=== PATIENT | female | born 1940 | race Caucasian/White ===

== ENCOUNTER → 2017-05-27 | Outpatient (CLI) | payer OTHER ==
[~2017-05-27] MED LIST: ACET325 PO; ALBU90OI6 INH; AMIO200 PO; AMLO5 PO; ASPI325 PO; BENA20 PO; BUME1 PO; BUME2; Bacid1 EACH PO; Bactrim Ds Tab1 EACH PO; CALC.25; CHOL10002 PO; CLON.1 PO; CLON.2 PO; CYAN1000; CYCL10 PO; Coumadin5 MG PO; Coumadin6 MG PO; DOCSEN PO; DOXA2 PO; ENAL20 PO; ENALAPRIL; ESZO1 PO; FERR325 PO; FURO20 PO; FURO40 PO; HYDACE5 PO; HYDMOR2 PO; HYDPAM25; HYDR10 PO; ISODIN10 PO; LEVSOD100 PO; LEVSOD50 PO; LEVSOD75 PO; LEVSOD88 PO; LORA.5 PO; Lasix 10 mg/10 MG/ML; MAGCHL64ER PO; MAGOXI400 PO; MEDI PO; METF500 PO; METO2.5 PO; METO50ER PO; METR500 PO; Mirapex0.25 MG PO; NAPR500 PO; NEBI5 PO; PANT40 PO; POTA10T PO; POTCHL20ER; PRAM.125 PO; PRAM.5 PO; PRAV20; PRAV20 PO; SPIR25; Simvastatin20 MG PO; TORSE20 PO; Toprol Xl50 MG PO; VITAMIN D350000 UNIT PO; WARF4 PO
[2017-05-27 10:42] LABS: BASOPHILS ABSOLUTE AUTO 0.02 K/mm3 (0.00-0.23); BASOPHILS PERCENT AUTO 0 % (0-2); EOSINOPHILS ABSOLUTE AUTO 0.06 K/mm3 (0.00-0.68); EOSINOPHILS PERCENT AUTO 1 % (0-6); Hematocrit 34.1 % (33.0-51.0); Hemoglobin 10.5 g/dL (11.5-16.0); IMMATURE GRAN ABSOLUTE AUTO 0.04 K/mm3 (0.00-0.10); IMMATURE GRAN PERCENT AUTO 1 % (0-1); LYMPHOCYTES ABSOLUTE AUTO 1.21 K/mm3 (0.84-5.20); LYMPHOCYTES PERCENT AUTO 15 % (21-46); MONOCYTES ABSOLUTE AUTO 0.62 K/mm3 (0.16-1.47); MONOCYTES PERCENT AUTO 8 % (4-13); Mean Corpuscular HGB 29.5 pg (26.0-34.0); Mean Corpuscular HGB Conc 30.8 g/dL (31.5-36.5); Mean Corpuscular Volume 96 fL (80-100); NEUTROPHILS PERCENT AUTO 75 % (41-73); Platelet Count 205 K/mm3 (150-400); RDW Coefficient Variation 14.3 % (11.7-14.2); RDW Standard Deviation 50.3 fL (35.1-46.3); Red Blood Cell Count 3.56 M/mm3 (3.80-5.20); White Blood Cell Count 7.85 K/mm3 (4.00-11.30)
[2017-05-27 10:56] LABS: International Normalized Ratio 1.43
[2017-05-27 11:17] LABS: Alanine Aminotransfer (ALT/SGP 19 U/L (12-78); Albumin, Blood 3.2 g/dL (3.4-5.0); Albumin/Globulin Ratio 0.9 (0.8-1.8); Alk Phos 53 U/L (50-136); Anion Gap 9 mmol/L (6-16); Aspartate Aminotrans (AST/SGOT 14 U/L (12-37); Bilirubin, Total 0.3 mg/dL (0.1-1.0); Blood Urea Nitrogen 47 mg/dL (8-24); CHOL/HDL RATIO 2.1; CO2, Blood 29 mmol/L (21-32); Chloride, Blood 104 mmol/L (98-108); Cholesterol 103 mg/dL (50-200); Creatinine, Blood 2.14 mg/dL (0.40-1.00); Globulin, Blood 3.5 g/dL (2.2-4.0); Glomerular Filtration Rate 24 (60-); Glucose, Blood 112 mg/dL (70-99); HDL Cholesterol 50 mg/dL (>39); LDL/HDL RATIO 0.6; Low Density Lipoprotein Chol 30 mg/dL (0-110); Potassium, Blood 3.4 mmol/L (3.5-5.5); Sodium, Blood 142 mmol/L (136-145); Total Protein, Blood 6.7 g/dL (6.4-8.2); Triglycerides 114 mg/dL (30-160); Very Low Density Lipoprot Chol 22 mg/dL (6-32)
[2017-05-27 11:18] LABS: Albumin, Blood 3.2 g/dL (3.4-5.0); Anion Gap 9 mmol/L (6-16); Blood Urea Nitrogen 48 mg/dL (8-24); Bun/Creatinine Ratio 20.3 (12.0-20.0); CO2, Blood 28 mmol/L (21-32); Calcium, Blood 9.3 mg/dL (8.5-10.1); Chloride, Blood 105 mmol/L (98-108); Creatinine, Blood 2.37 mg/dL (0.40-1.00); Glomerular Filtration Rate 21 (60-); Glucose, Blood 116 mg/dL (70-99); Phosphorus, Blood 3.3 mg/dL (2.5-4.9); Potassium, Blood 3.5 mmol/L (3.5-5.5); Sodium, Blood 142 mmol/L (136-145)
== END ==
LOC: OLS 09:21
PROVIDERS: Internal Medicine; Internal Medicine Cardiovascular Disease
DX: I12.9 Hypertensive chronic kidney disease with stage 1 through stage 4 chronic kidney disease, or unspecified chronic kidney disease (principal); N17.9 Acute kidney failure, unspecified; D63.1 Anemia in chronic kidney disease; I48.0 Paroxysmal atrial fibrillation; E03.9 Hypothyroidism, unspecified
CPT/HCPCS: 36415; 80053; 80061; 80069; 83036; 83880; 83970; 84443; 85025; 85610

== ENCOUNTER → 2017-05-31 | Outpatient (CLI) | payer OTHER ==
[2017-05-31 12:13] LABS: Source, Urine Clean Catch
[2017-05-31 13:43] LABS: Appearance, Urine Clear (Clear); Bilirubin, Urine Neg (Neg); Blood, Urine 1+ (Neg); Color, Urine Yellow (P-Yellow); Glucose Qualitative, Urine Neg (Neg); Ketones, Urine Neg (Neg); Leukocyte Esterase, Urine 1+ (Neg); Nitrite, Urine Neg (Neg); Protein, Urine 2+ (Neg); Urobilinogen, Urine NORM (Normal)
[2017-05-31 13:59] LABS: White Blood Cells, Urine 25-50 /hpf (0-5)
[2017-05-31 14:00] LABS: Bacteria Many /hpf; Red Blood Cells, Urine Not Seen /hpf (0-2); Squamous Epithelial Cells Rare /hpf (Few)
== END | disposition home or self-care (01) ==
LOC: OLS 12:07
PROVIDERS: Internal Medicine
DX: R39.15 Urgency of urination (principal)
CPT/HCPCS: 81001; 87077; 87086; 87186

== ENCOUNTER 2017-06-02 10:01 | Emergency (ER) | payer OTHER ==
[~2017-06-02] VITALS: Ht 162.6 cm; Wt 68.0 kg
[~2017-06-02 10:01] MED LIST changes: -Coumadin5 MG PO
[2017-06-02 11:02] LABS: International Normalized Ratio 1.48; Prothrombin Time Results 15.6 Sec (9.7-11.5)
[2017-06-02] MEDS ORDERED: Coumadin5 MG PO (12:53)
== END 2017-06-02 13:11 | disposition home or self-care (01) ==
LOC: ER 10:01
PROVIDERS: Nurse Practitioner Family
DX: M71.21 Synovial cyst of popliteal space [Baker], right knee (principal); Z88.8 Allergy status to other drugs, medicaments and biological substances; Z88.5 Allergy status to narcotic agent; Z79.899 Other long term (current) drug therapy; Z79.01 Long term (current) use of anticoagulants; E11.9 Type 2 diabetes mellitus without complications; I11.0 Hypertensive heart disease with heart failure; I50.9 Heart failure, unspecified; E03.9 Hypothyroidism, unspecified
CPT/HCPCS: 36415; 85610; 93971; 99284

== ENCOUNTER → 2017-10-12 | Outpatient (CLI) | payer OTHER ==
[~2017-10-12] MED LIST changes: +Coumadin5 MG PO
== END | disposition home or self-care (01) ==
LOC: PLD 07:35 → LAB SHORT 07:35
DX: C44.619 Basal cell carcinoma of skin of left upper limb, including shoulder (principal)
CPT/HCPCS: 88305

== ENCOUNTER → 2018-09-27 | Outpatient (CLI) | payer OTHER | END | disposition home or self-care (01) | LOC: LAB EV 17:09 → LAB SHORT 17:09 | DX: I48.91 Unspecified atrial fibrillation (principal) | CPT/HCPCS: 36416; 85610 ==

== ENCOUNTER 2019-04-23 12:07 | Inpatient (IN) | payer OTHER ==
[~2019-04-23] VITALS: Ht 162.6 cm; Wt 101.6 kg
[2019-04-23 12:51] LABS: BASOPHILS ABSOLUTE AUTO 0.02 K/mm3 (0.00-0.23); BASOPHILS PERCENT AUTO 0 % (0-2); EOSINOPHILS ABSOLUTE AUTO 0.21 K/mm3 (0.00-0.68); EOSINOPHILS PERCENT AUTO 3 % (0-6); Hemoglobin 8.5 g/dL (11.5-16.0); IMMATURE GRAN ABSOLUTE AUTO 0.02 K/mm3 (0.00-0.10); IMMATURE GRAN PERCENT AUTO 0 % (0-1); LYMPHOCYTES ABSOLUTE AUTO 0.85 K/mm3 (0.84-5.20); LYMPHOCYTES PERCENT AUTO 13 % (21-46); MONOCYTES ABSOLUTE AUTO 0.61 K/mm3 (0.16-1.47); MONOCYTES PERCENT AUTO 10 % (4-13); Mean Corpuscular HGB 28.5 pg (26.0-34.0); Mean Corpuscular HGB Conc 29.3 g/dL (31.5-36.5); Mean Corpuscular Volume 97 fL (80-100); Mean Platelet Volume 11.3 fL (9.1-12.4); NEUTROPHILS ABSOLUTE AUTO 4.63 K/mm3 (1.96-9.15); NEUTROPHILS PERCENT AUTO 73 % (41-73); Platelet Count 227 K/mm3 (150-400); RDW Coefficient Variation 16.5 % (11.7-14.2); RDW Standard Deviation 58.4 fL (35.1-46.3); Red Blood Cell Count 2.98 M/mm3 (3.80-5.20); White Blood Cell Count 6.34 K/mm3 (4.00-11.30)
[2019-04-23 13:07] LABS: Troponin I 0.018 ng/mL (0.000-0.040)
[2019-04-23 13:08] LABS: International Normalized Ratio 1.39; Prothrombin Time Results 14.6 Sec (9.7-11.5)
[2019-04-23 13:14] LABS: Albumin, Blood 3.3 g/dL (3.4-5.0); Bilirubin, Total 0.5 mg/dL (0.1-1.0); Bun/Creatinine Ratio 23.1 (12.0-20.0); Calcium, Blood 9.1 mg/dL (8.5-10.1); Creatinine, Blood 2.12 mg/dL (0.40-1.00); Globulin, Blood 3.2 g/dL (2.2-4.0); Potassium, Blood 3.9 mmol/L (3.5-5.5); Thyroid Stimulating Hormone 1.62 uIU/mL (0.360-4.800); Total Protein, Blood 6.5 g/dL (6.4-8.2)
[2019-04-23] MEDS ORDERED: PACERONE100 M1 PO (14:05)
[2019-04-23] MEDS ORDERED: METO100ER PO (14:05)
[2019-04-23] MEDS ORDERED: FERSU300 PO (14:05)
[2019-04-23] MEDS ORDERED: PRAM.5 PO (14:06)
[2019-04-23] MEDS ORDERED: SYNTHROID88 MCG PO (14:06)
[2019-04-23] MEDS ORDERED: HYDRA25 PO (14:07)
[2019-04-23] MEDS ORDERED: Heartburn Relie20 MG PO (14:07)
[2019-04-23] MEDS ORDERED: PRAVASTATIN SOD20 MG PO (14:07)
[2019-04-23] MEDS ORDERED: OMEPRAZOLE20 MG PO (14:07)
[2019-04-23] MEDS ORDERED: Bumetanide2 MG PO ×2 (14:08)
[2019-04-23] MEDS ORDERED: Calcitriol0.5 MCG PO (14:08)
[2019-04-23] MEDS ORDERED: WARF4 PO (14:17)
--- NOTE | 2019-04-23 14:41 | NUR ---
Brief ED visit this afternoon. Spoke with Dr Lawton prior to visit and discussed case. Pt resting on gurney and denies pain at this time. Pt appears dyspneic as evidenced by work of breathing when attempting to speak. Pt reports receiving breathing treatment prior to the RN's arrival. Discussed F/U when she is admitted to the floor and Pt is agreeable. Pt states "All I want to do is sleep". This RN ended visit. Palliative Care will F/U for Advanced Care Planning.
[2019-04-23 14:54] LABS: Base Excess Venous 0.7 mmol/L; Bicarbonate Venous 24.7 mmol/L (24.0-30.0); PCO2 Venous 57.4 mmHg (38-42); PO2 Venous 121 mmHg (38-42); pH Blood Venous 7.29 (7.34-7.37)
[2019-04-23 15:13] LABS: Magnesium, Blood 2.6 mg/dL (1.6-2.4); Phosphorus, Blood 3.8 mg/dL (2.5-4.9)
--- NOTE | 2019-04-23 16:35 | NUR ---
ARRIVAL TO UNIT Assumed care of pt upon arrival to PCU 6 at 1601. Pt arrived accompanied by Lance ARAYA. Pt wearing 2 LPM NC. SpO2 90% or greater. Pt arrived with cardizem at 10 mg/hr. HR 100-110, atrial fibrillation with some pacemaker spikes noted. Discussed cardizem drip with Dr Hopkins. Decision made to turn cardizem drip off. Elevated HR likely due to CHF, per provider. Pt alert and oriented x 4. Dyspnea at rest. Speaks in 3-4 word sentences. Zhou catheter placed for strict measurement of fluid intake and output. No family accompanied pt to unit. Bed in lowest position. Call light in reach. Echocardiogram hospital pharmacy technician in room at this time.
[2019-04-23 16:36] LABS: Source, Urine Voided
[2019-04-23 16:38] LABS: Bilirubin, Urine Neg (Neg); Blood, Urine Neg (Neg); Glucose Qualitative, Urine Neg (Neg); Ketones, Urine Neg (Neg); Leukocyte Esterase, Urine Neg (Neg); Nitrite, Urine Neg (Neg); Protein, Urine 2+ (Neg); Specific Gravity, Urine 1.015 (1.003-1.022); Urobilinogen, Urine NORM (Normal)
[2019-04-23] MEDS ORDERED: K-Dur 20 meq T20 MEQ PO (16:41)
[2019-04-23] MEDS ORDERED: THERA-D2000 UNIT PO (16:43)
[2019-04-23] MEDS ORDERED: BENZ100A PO (16:47)
[2019-04-23 16:51] LABS: Appearance, Urine Hazy (Clear); Color, Urine Yellow (P-Yellow)
[2019-04-23 16:53] LABS: Amorphous Mod (0-Heavy); Bacteria Few /hpf; Red Blood Cells, Urine Not Seen /hpf (0-2); Squamous Epithelial Cells Few /hpf (Few); White Blood Cells, Urine 0-2 /hpf (0-5)
--- NOTE | 2019-04-23 17:20 | NUR ---
Echocardiogram completed.
--- NOTE | 2019-04-23 19:25 | NUR ---
SUMMARY No acute changes since arrival to unit. Pt remains on 2 LPM NC. Atrial fibrillation with occasional paced beats per telemetry, rate averaging between 105 and 115. Pt speaking with more ease than previously noted. Pt's daughter and spouse briefly visited patient. Bedside report given to Sunitha ARAYA.
[2019-04-23 20:28] LABS: Adenovirus Not Detected (NOT DETECT); Coronavirus 229E Not Detected (NOT DETECT); Coronavirus HKU1 Not Detected (NOT DETECT); Coronavirus NL63 Not Detected (NOT DETECT); Coronavirus OC43 Not Detected (NOT DETECT); Human Metapneumovirus Not Detected (NOT DETECT); Human Rhinovirus/Enterovirus Detected (NOT DETECT); Influenza A Not Detected (NOT DETECT); Influenza A/2009-H1 Not Detected (NOT DETECT); Influenza A/H1 Not Detected (NOT DETECT); Influenza A/H3 Not Detected (NOT DETECT); Influenza B Not Detected (NOT DETECT); Parainfluenza Virus 1 Not Detected (NOT DETECT)
[2019-04-23 20:29] LABS: Bordetella pertussis Not Detected (NOT DETECT); Chlamydophila pneumoniae Not Detected (NOT DETECT); Mycoplasma pneumoniae Not Detected (NOT DETECT); Parainfluenza Virus 2 Not Detected (NOT DETECT); Parainfluenza Virus 3 Not Detected (NOT DETECT); Parainfluenza Virus 4 Not Detected (NOT DETECT); Respiratory Syncytial Virus Not Detected (NOT DETECT)
--- NOTE | 2019-04-24 04:20 | NUR ---
SHIFT SUMMARY: PATIENT INCREASINGLY CONFUSED SHIFT PROGRESSED, PATIENT UNABLE TO IDENTIFY LOCATION OR MONTH. PATIENT WANTS TO GO HOME STATING 'I DONT WANT YOU TO MAKE ME BETTER, I WANT TO GO HOME, I WANT MY ', FREQUENT REORIENTATION ATTEMPTED, EDUCATION ATTEMPTED, PATIENT UNRECEPTIVE. PATIENT REFUSING MORNING MEDICATIONS. PATIENT WAVE MORPHOLOGY ON TELEMETRY SEEMS TO CHANGE WITH EACH CHANGE IN POSITION, PATIENT ASYMPTOMATIC ALL SHIFT. ALL VSS, CALL LIGHT WITHIN REACH BUT NOT USED AT ALL (PATIENT YELLS LOUDLY WHEN NEEDING ASSISTANCE), BED LOW AND LOCKED WITH BED EXIT ALARM ON.
[2019-04-24 04:44] LABS: BASOPHILS PERCENT AUTO 0 % (0-2); EOSINOPHILS PERCENT AUTO 0 % (0-6); Hematocrit 26.7 % (33.0-51.0); Hemoglobin 7.4 g/dL (11.5-16.0); IMMATURE GRAN ABSOLUTE AUTO 0.04 K/mm3 (0.00-0.10); IMMATURE GRAN PERCENT AUTO 1 % (0-1); LYMPHOCYTES ABSOLUTE AUTO 0.24 K/mm3 (0.84-5.20); LYMPHOCYTES PERCENT AUTO 4 % (21-46); MONOCYTES ABSOLUTE AUTO 0.05 K/mm3 (0.16-1.47); MONOCYTES PERCENT AUTO 1 % (4-13); Mean Corpuscular HGB 27.9 pg (26.0-34.0); Mean Corpuscular HGB Conc 27.7 g/dL (31.5-36.5); Mean Platelet Volume 10.6 fL (9.1-12.4); NEUTROPHILS PERCENT AUTO 94 % (41-73); Platelet Count 202 K/mm3 (150-400); RDW Coefficient Variation 16.4 % (11.7-14.2); RDW Standard Deviation 60.3 fL (35.1-46.3); Red Blood Cell Count 2.65 M/mm3 (3.80-5.20); White Blood Cell Count 5.73 K/mm3 (4.00-11.30)
[2019-04-24 04:45] LABS: Mean Corpuscular Volume 101 fL (80-100)
[2019-04-24 04:57] LABS: International Normalized Ratio 2.24; Prothrombin Time Results 22.9 Sec (9.7-11.5)
[2019-04-24 05:03] LABS: Albumin, Blood 2.9 g/dL (3.4-5.0); Bilirubin, Total 0.3 mg/dL (0.1-1.0); Bun/Creatinine Ratio 19.4 (12.0-20.0); Calcium, Blood 8.5 mg/dL (8.5-10.1); Creatinine, Blood 2.84 mg/dL (0.40-1.00); Potassium, Blood 5.4 mmol/L (3.5-5.5); Total Protein, Blood 5.9 g/dL (6.4-8.2)
--- NOTE | 2019-04-24 12:31 | NUR ---
Patient is sitting up in bed and alert. Patient openly shares about her medical issues, her family/life history and about her wilber. Patient tells me of her fears bout what will happen to her in terms of where she will go after DC. She tells me her is disabled. I listen empathically, reinforce helpful attitudes and practices and provide pastoral probation counselor and prayer. Patient responds well and shows signs of reduced stress. I will continue to remain available to patient and family.
--- NOTE | 2019-04-24 18:57 | NUR ---
SHIFT SUMMARY PT A&Ox3; FORGETFUL; COOPERATIVE WITH CARE. PT RESTING BED DURING SHIFT, UP IN ROOM WITH 1 PERSON ASSIST AND WALKER. PT SOB WITH EXCERTION; TITRATED FROM 5L TO 3L O2 VIA NC. PT DENIES PAIN, REPROTS HAIVNG RESTLESS LEGS. PT DENIES NASUEA; HAS GOOD APPETEITE. POTASSIUM ORDER THIS AM, WITH MINIMAL URINE OUTPUT AND POTASSIUM LAB THIS AM, HELD THIS AM AND NOTIFIED DR HERNANDEZ; NEW ORDERS TO INCREASED BUMEX. BLADDER SCAN COMPELTED 0CC IN BLADDER; 150CC OUT T/O SHIFT; NOTIFIED DR HERNANDEZ; NEW ORDERS TO D/C POTASSIUM. DR GARCIA CONULTED PER ORDERS. OTHER VSS. NO OTHER ACUTE CHANGES NOTED DURING SHIFT. REPORT GIVEN TO ONCOMING RN.
[2019-04-25 04:10] LABS: BASOPHILS ABSOLUTE AUTO 0.01 K/mm3 (0.00-0.23); BASOPHILS PERCENT AUTO 0 % (0-2); EOSINOPHILS PERCENT AUTO 0 % (0-6); Hematocrit 27.5 % (33.0-51.0); Hemoglobin 7.8 g/dL (11.5-16.0); IMMATURE GRAN ABSOLUTE AUTO 0.07 K/mm3 (0.00-0.10); IMMATURE GRAN PERCENT AUTO 1 % (0-1); LYMPHOCYTES ABSOLUTE AUTO 0.43 K/mm3 (0.84-5.20); LYMPHOCYTES PERCENT AUTO 5 % (21-46); MONOCYTES ABSOLUTE AUTO 0.73 K/mm3 (0.16-1.47); MONOCYTES PERCENT AUTO 8 % (4-13); Mean Corpuscular HGB 28.4 pg (26.0-34.0); Mean Corpuscular HGB Conc 28.4 g/dL (31.5-36.5); Mean Corpuscular Volume 100 fL (80-100); Mean Platelet Volume 10.4 fL (9.1-12.4); NEUTROPHILS ABSOLUTE AUTO 8.19 K/mm3 (1.96-9.15); NEUTROPHILS PERCENT AUTO 87 % (41-73); Platelet Count 236 K/mm3 (150-400); RDW Coefficient Variation 16.4 % (11.7-14.2); RDW Standard Deviation 60.3 fL (35.1-46.3); Red Blood Cell Count 2.75 M/mm3 (3.80-5.20); White Blood Cell Count 9.43 K/mm3 (4.00-11.30)
[2019-04-25 04:26] LABS: International Normalized Ratio 3.65; Prothrombin Time Results 36.3 Sec (9.7-11.5)
[2019-04-25 04:29] LABS: Albumin, Blood 3.2 g/dL (3.4-5.0); Anion Gap 6 mmol/L (6-16); Blood Urea Nitrogen 67 mg/dL (8-24); Bun/Creatinine Ratio 17.2 (12.0-20.0); CO2, Blood 28 mmol/L (21-32); Calcium, Blood 8.8 mg/dL (8.5-10.1); Chloride, Blood 106 mmol/L (98-108); Glomerular Filtration Rate 12 (60-); Glucose, Blood 124 mg/dL (70-99); Phosphorus, Blood 5.9 mg/dL (2.5-4.9); Potassium, Blood 5.3 mmol/L (3.5-5.5); Sodium, Blood 140 mmol/L (136-145)
--- NOTE | 2019-04-25 07:37 | NUR ---
SHIFT SUMMARY NO ACUTE CHANGES NOTED THROUGH THE NIGHT. PT REMAINS ON 3 L O2 VIA NC. LUNG SOUNDS ARE DECREASED THROUGH ALL MUSA, PT IS REFUSING TO DB&C BECAUE SHE STATES SHE HATES TO COUGH. PT WAS EDUCATED ON THE IMPORTANCE AND RISK FACTORS. OCCASION CONFUSION NOTED THROUGH THE NIGHT. PT REORIENTS QUICKLY, BED ALARM IS ON FOR SAFETY, PT DOES NOT USE CALL LIGHT BEFORE ATTEMPTING TO GET OOB. MONSON REMAINS PATENT, DRAING CLEAR YELLOW URINE, ONLY 175 ML NOTED THIS SHIFT, AMOUNT REPORTED TO DAY RN. VSS, CALL LIGHT IN REACH.
[2019-04-25 12:04] LABS: PCO2 Arterial 54.4 mmHg (35-45); PO2 Arterial 52.6 mmHg (80-100)
--- NOTE | 2019-04-25 12:11 | NUR ---
Pt sitting in chair and has just finished working with OT. Pt is A&O X2 and engages in word salad or nonsensical topics of conversation. Pt denies pain and dyspnea at this time. Spoke with bedside RN Melinda and discussed case. Spoke with Dr Mock and [place] Monogram Technician Lalita. Discussed case and plan of care. Palliative Care will remain available.
[2019-04-25 14:22] LABS: Source, Urine Catheter
[2019-04-25 14:30] LABS: Bilirubin, Urine Neg (Neg); Blood, Urine 5+ (Neg); Glucose Qualitative, Urine Neg (Neg); Ketones, Urine Neg (Neg); Leukocyte Esterase, Urine 2+ (Neg); Nitrite, Urine Neg (Neg); Protein, Urine 3+ (Neg); Specific Gravity, Urine 1.015 (1.003-1.022); Urobilinogen, Urine NORM (Normal)
--- NOTE | 2019-04-25 14:33 | NUR ---
Patient is lying in bed with Bipap and alert. Patient tells me she is struggling to breath but doig ok. Patient talks about her wilber and how it pulls her through rough times and about how she misses her . I listen empathically, normalize patient's experience and provide prayer. Patient responds well and voices appreciation for the visit. I will continue to remain available to patient and family.
[2019-04-25 14:57] LABS: Appearance, Urine Hazy (Clear); Color, Urine Red (P-Yellow)
[2019-04-25 14:59] LABS: Bacteria Few /hpf; Red Blood Cells, Urine TNTC /hpf (0-2); Squamous Epithelial Cells Few /hpf (Few)
--- NOTE | 2019-04-25 19:36 | NUR ---
UPDATE PATIENT VERY AGITATED AND FRUSTRATED. PATIENT KEEPS ATTEMPTING TO CLIMB OUT OF BED AND STATING, "DON'T TOUCH ME!" AND "I NEED TO GET OUT OF HERE." PATIENT STATING "I DON'T NEED ANY HELP" AND "I DON'T WANT ANY OF THIS." PATIENT REFUSING TO PUT OXYGEN BACK ON AND WEAR HER OXYGEN PROB. DANIA FROM PALLIATIVE CARE IN ROOM AND NURSING SUPERVISER RIA IN ROOM.
--- NOTE | 2019-04-25 19:46 | NUR ---
pt aggitated wanting to pull everything off distraught by contact pt telling she is done and some arguing and pleading. She expresses that he will not let her go. called daughter to come in to discuss code status and plan of care. nursin to advise hospitalist of increasing aggitation.
--- NOTE | 2019-04-25 19:47 | NUR ---
UPDATE CALL TO NURSE PRACTIONER LILIAM JOREGNSEN ABOUT SITUATION. SHE STATED SHE WILL COME UP TO SEE PATIENT.
--- NOTE | 2019-04-25 20:16 | NUR ---
UPDATE PATIENT CURRENTL REFUSING VITAL SIGNS TO BE OBTAINED. AND VERIOUS FAMILY MEMEBERS CURRENTLY PRESENT IN ROOM.
--- NOTE | 2019-04-25 20:31 | NUR ---
SHIFT SUMMARY THIS AM PT A&Ox3, T/O AM PT BECAME MORE CONFUSED AND NONSENSICAL WITH SPEECH; DR HERNANDEZ NOTIFIED WITH NEW ORDER FOR ABG STAT AT APRPOX 1148; NOTIFIED OF RESULTS AT 1210, NEW ORDERS ENTERED FOR BIPAP AND OXIMETRY. DAUGHTER AT BEDSIDE WITH RT WHILE ATTEMPTING TO PLACE BIPAP; DAUGHTER STATES THAT THE PT STARTED TO BE MORE CONFUSED AND AGGITATED ON DAY 3 OF HOSPITAL STAY OR WHEN SHE HAS UTI, PT DAUGHTER STATES SHE DOES NOT BELEIVE THAT BIPAP WITH HELP CLEAR CONFUSION. NOTIFIED DR HERNANDEZ AT 1243, ORDERS TO CONTINUE WITH BIPAP AND ORDER UA; ARNOLDO FROM MONSON CATHETER IN PLACE. BIPAP PLACE AT APPROX 1305 PER RT; PT ON 3L O2 VIA NC, TITRATED TO 2L O2 VIA NC PRIOR TO BIPAP PLACEMENT. PT LS DIM T/O SHIFT. PT TAKING BIPAP OFF CONTINUOUSLY, NEEDING ASSISTANCE TO REPLACE, DESATURATIONS QUICKLY, RECOVERY OVER A MINUTE OR TWO. PT TRANSFERED TO ROOM PCU 10 FOR CLOSER OBSERVATIONS, PT TAKING OFF BIPAP AND ATTEMPTING TO GET OUT OF BED. PT UP IN CHAIR PRIOR TO BIPAP PLACEMENT THIS AM, 1 PERSON ASSIST WITH WALKER, GAITBELT AND VERBAL QUES. PT DENIES PAIN AND NAUSEA T/O SHIFT. PT RECEIVING IV BUMEX, 500 URINE OUT DURING SHIFT. VSS. DR GARCIA ORDER 1 UNIT OF PRBC, PT AGREEABLE TO RECEIVING THIS AFTERNOON; SUBSTATION ENGINEER ANNE SIMENTAL WITH BLOOD ADMINISTRATION; PT BENDING ARM FOR MAJORITY OF TIME OF BLOOD TRANSFUSION; PLACE ARM BOARED. PT STARTED BECOME MORE AGGITATED THIS EVENING, ATTEMPTING TO GET OUT OF BED, BENDING ARM, PULLING OFF BIPAP AND NC, STATING SHE JUST WANTS TO GO HOME. REPORT GIVEN TO ONCOMING RN.
--- NOTE | 2019-04-25 20:51 | NUR ---
UPDATE UNABLE TO COMPLETE BLOOD TRANSFUSION DUE TO PATIENT NOT ALLOWING IV MEDICATIONS TO BE RUN UNTIL NOW. PATIENT STILL REFUSING TO ALLOW O2 TO BE REPLACED OR VITAL SIGNS TO BE TAKEN.
--- NOTE | 2019-04-25 23:50 | NUR ---
UPDATE AT APPROX 2200 PATIENT ALLOWED THE OXYGEN TO BE PLACED AGAIN AND TOLERATED HAVING A SET OF VITAL SIGNS TAKEN. PATIENT THEN WORE HER OXYGEN FOR SEVERAL HOURS. HOWEVER, WHEN RESPIRTORY THERAPY CAME AROUND THEY FOUND HER OXYGEN OFF. PATIENT WOULD NOT ALLOW STAFF TO REPLACE OXYGEN OR PLACED O2 PROB AT THIS TIME. NURSE PRACTIONER LILIAM JORGENSEN UP TO SEE PATIENT. ORDERS RECEIVED AND BILATERAL SOFT WRIST RESTRAINTS IN PLACE. OXYGEN IN PLACE AT THIS ITME. PATIENT ABLE TO STATE SHE IS IN [place] AND THAT LUIS ARMANDO IS PRESIDENT. ALL OTHER ANSWERES WERE "DO YOU KNOW? I DON'T FEEL LIKE TELLING YOU."
[2019-04-26 01:01] LABS: PO2 Arterial 91.4 mmHg (80-100)
[2019-04-26 01:02] LABS: pH Blood Arterial 7.28 (7.35-7.45)
--- NOTE | 2019-04-26 02:08 | NUR ---
UPDATE PATIENT CONTINUED TO BE VERY CONFUSED, PATIENT DID STATE, "I HAVE A PLEA, I WANT TO LIVE." PATIENT EDUCATED ON IMPORTANCE OF WEARING HER OXYGEN BUT CONTINUES TO BE CONFUSED AND NON COMPLIENT WITH WEARING HER OXYGEN PROB. PATIENT TRANSFERED TO ICU TO BE PLACED ON BIPAP DUE TO ABG RESULTS AND BEING IN RESTRAINTS. REPORT GIVEN TO QUIANA JACOBO. PATIENT TRANSFERED TO ICU WITH ALL BELONGINGS AT APPROX 0145. ATTEMPTED TO LEAVE A MESSAGE WITH PATIENT'S . CHARGE NURSE YINKA NOTIFIED PATIENT'S DAUGHTER JASE.
--- NOTE | 2019-04-26 02:15 | NUR ---
ASSUMED CARE REPORT TAKEN FROM RAOUL ARAYA. PT ARRIVED TO UNIT APPEARED TO BE CALM AND RESTING COMFORTABLY. PT WAS ON 3L NC W/ SATS >92%. PT HAD BEEN MEDICATED FOR AGITATION PRIOR TO ARRIVAL. RT TO ROOM TO PLACE PT ON BIPAP, PT RESTRAINED W/ BILATERAL SOFT WRIST RESTRAINTS, PT IS PULLING SOFTLY AT RESTRAINTS AT THIS TIME, AND ASKING STAFF TO "LET ME GO". LIGHTS TURNED DOWN, AND STIMULUS REDUCED AND PT APPEARS TO BE RESTING COMFORTABLY AT THIS TIME W/ BIPAP IN PLACE. CALL LIGHT IS WITHIN REACH. BED ALARM ON FOR SAFETY. WILL CLOSELY MONITOR PT.
[2019-04-26 03:55] LABS: Prothrombin Time Results 48.1 Sec (9.7-11.5)
[2019-04-26 04:12] LABS: International Normalized Ratio 4.92
--- NOTE | 2019-04-26 06:08 | NUR ---
SHIFT SUMMARY PT SLEEPING IN ROOM COMFORTBLY AT THIS TIME. PT ARRIVED TO UNIT FROM PCU D/T INCREASED O2 DEMANDS, NEED TO GO ON BIPAP, PT CONFUSUISON AND AGITATION. PT HAD BEEN PULLING AT LINES AND O2 REFUSING TO KEEP O2 ON, PT WAS DESATTING INTO 70'S PER CIVIL SERVICE CLERK. DECISION WAS MADE TO RESTRAIN PT AND PLACE ON BIPAP. RESP CURRENTLY EVEN UNLABORED ON BIPAP W/ 25% FiO2 SATS >94%. PT WAS MEDICATED FOR AGITATION AND IS NOW RESTING COMFORTABLY W/ BILAT SOFT WRIST RESTRAINTS. PT REMAINS CONFUSED AND PULLING AT RESTRAINTS WHEN AWAKE. STIMULUS REDUCED, AND LIGHTS DOWN IN ROOM. FAMILY WAS MADE AWARE OF PT TRANSFER. CALL LIGHT IS WITHIN REACH OF PT AND BED ALARM IS ON FOR SAFETY. WILL GIVE BEDSIDE REPORT TO ONCOMING RN.
[2019-04-26 07:48] LABS: BASOPHILS ABSOLUTE AUTO 0.01 K/mm3 (0.00-0.23); BASOPHILS PERCENT AUTO 0 % (0-2); EOSINOPHILS PERCENT AUTO 0 % (0-6); Hematocrit 30.5 % (33.0-51.0); Hemoglobin 9.1 g/dL (11.5-16.0); IMMATURE GRAN ABSOLUTE AUTO 0.08 K/mm3 (0.00-0.10); IMMATURE GRAN PERCENT AUTO 1 % (0-1); LYMPHOCYTES PERCENT AUTO 6 % (21-46); MONOCYTES ABSOLUTE AUTO 1.16 K/mm3 (0.16-1.47); MONOCYTES PERCENT AUTO 10 % (4-13); Mean Corpuscular HGB 28.2 pg (26.0-34.0); Mean Corpuscular HGB Conc 29.8 g/dL (31.5-36.5); Mean Platelet Volume 10.7 fL (9.1-12.4); NEUTROPHILS ABSOLUTE AUTO 9.61 K/mm3 (1.96-9.15); NEUTROPHILS PERCENT AUTO 83 % (41-73); Platelet Count 252 K/mm3 (150-400); RDW Coefficient Variation 16.7 % (11.7-14.2); Red Blood Cell Count 3.23 M/mm3 (3.80-5.20); White Blood Cell Count 11.56 K/mm3 (4.00-11.30)
[2019-04-26 07:51] LABS: Mean Corpuscular Volume 94 fL (80-100)
--- NOTE | 2019-04-26 08:00 | NUR ---
INITIAL ASSESMENT PT LETHARGIC BUT AROUSABLE TO LOUD VERBAL STIM, WILL FOLLOW COMMANDS AND DRIP BACK TO SLEEP. BIPAP IN PLACE AND WILL WEAN TOLERATED. DENIES PAIN AND VSS WITH AV PACED. SATS WNL AND DIMINISHED T/O. TOLERATING PO INTAKE NO BM MONSON IN PLACE AND DRAINING CLEAR YELLOW URINE. WILL CONT TO MONITOR
[2019-04-26 08:16] LABS: Albumin, Blood 3.2 g/dL (3.4-5.0); Anion Gap 11 mmol/L (6-16); Blood Urea Nitrogen 90 mg/dL (8-24); CO2, Blood 23 mmol/L (21-32); Calcium, Blood 8.9 mg/dL (8.5-10.1); Chloride, Blood 106 mmol/L (98-108); Creatinine, Blood 4.29 mg/dL (0.40-1.00); Glomerular Filtration Rate 11 (60-); Glucose, Blood 101 mg/dL (70-99); Potassium, Blood 5.6 mmol/L (3.5-5.5); Sodium, Blood 140 mmol/L (136-145)
--- NOTE | 2019-04-26 09:40 | NUR ---
Review of pt with patient care manager. Will follow upw with physician on plan of care and prognosis.
--- NOTE | 2019-04-26 09:50 | NUR ---
PT UPDATE PT TOLERATING OFF BIPAP IN SHORT TIMES PERIODS AND SATS DRIFT TO HIGH 80S AND THEN PLACED BACK ON BIPAP. INSULIN ORDER OF 100U IV VERIFIED, RN ASKED PHARMACIST TO ASSURE, 10 UNITS GIVEN AND D50 PER MD ORDER. RN CONCERNED WITH HYPOGLYCEMIC SIDE EFFECT. MD AWARE, DEXTROSE INFUSION STARTED AND WILL CONT TO MONITOR BLOOD GLUCOSE. WILL CONT TO MONITOR
[2019-04-26 13:06] LABS: Anion Gap 7 mmol/L (6-16); Blood Urea Nitrogen 94 mg/dL (8-24); Bun/Creatinine Ratio 21.2 (12.0-20.0); CO2, Blood 24 mmol/L (21-32); Calcium, Blood 8.7 mg/dL (8.5-10.1); Chloride, Blood 106 mmol/L (98-108); Creatinine, Blood 4.44 mg/dL (0.40-1.00); Glomerular Filtration Rate 10 (60-); Glucose, Blood 112 mg/dL (70-99); Phosphorus, Blood 4.2 mg/dL (2.5-4.9); Potassium, Blood 4.2 mmol/L (3.5-5.5); Sodium, Blood 137 mmol/L (136-145)
--- NOTE | 2019-04-26 15:53 | NUR ---
PT REMAINS HYPOGLYCEMIC MD AWARE, RENAL AND SUPERVISOR CARDING BEDSIE PT AROUSABLE, TOLERATING BIPAP VSS, SATS WNL. WILL CONT TO MONITOR
--- NOTE | 2019-04-26 18:28 | NUR ---
PT UPDATE PT ON HFNC AT 5L SATS WNL, BS STABALIZED GOOD PO INTAKE AT DINNER VSS, NO C/O PAIN WILL CONT TO MONITOR
--- NOTE | 2019-04-26 22:00 | NUR ---
UPDATE PATIENT MUCH MORE ORIENTED TONIGHT THAN LAST NIGHT. PATIENT ABLE TO STATE NAME AND DATE OF WELL , CITY, AND THAT SHE WAS AT [facility]. PATIENT ABLE TO STATE YEAR, MONTH, AND PRESIDENT WELL. PATIENT REPORTS SHE FEELS BETTER. PATIENT VERY COMPLIENT WITH KEEPING OXYGEN IN PLACE. BLOOD SUGARS BEING CHECKED PER ORDERS. IV FLUIDS RUNNING PER ORDERS. PATIENT APPEARS TO BE ABLE TO SLIGHTLY ADJUST HER POSITION IN THE BED. PATIENT'S DAUGHTER JASE IN TO SEE PATIENT FOR A VISIT. PATIENT APPEARS TO BE COMFORTABLY RESTING IN BED AT THIS TIME, DENIES ANY NEEDS. WILL CONTINUE TO MONITOR PATIENT.
[2019-04-27 03:41] LABS: BASOPHILS ABSOLUTE AUTO 0.01 K/mm3 (0.00-0.23); BASOPHILS PERCENT AUTO 0 % (0-2); EOSINOPHILS ABSOLUTE AUTO 0.01 K/mm3 (0.00-0.68); EOSINOPHILS PERCENT AUTO 0 % (0-6); Hematocrit 27.9 % (33.0-51.0); Hemoglobin 8.4 g/dL (11.5-16.0); IMMATURE GRAN ABSOLUTE AUTO 0.05 K/mm3 (0.00-0.10); IMMATURE GRAN PERCENT AUTO 1 % (0-1); LYMPHOCYTES ABSOLUTE AUTO 0.66 K/mm3 (0.84-5.20); LYMPHOCYTES PERCENT AUTO 9 % (21-46); MONOCYTES ABSOLUTE AUTO 0.87 K/mm3 (0.16-1.47); MONOCYTES PERCENT AUTO 11 % (4-13); Mean Corpuscular HGB 28.1 pg (26.0-34.0); Mean Corpuscular HGB Conc 30.1 g/dL (31.5-36.5); Mean Corpuscular Volume 93 fL (80-100); NEUTROPHILS ABSOLUTE AUTO 6.15 K/mm3 (1.96-9.15); NEUTROPHILS PERCENT AUTO 80 % (41-73); Platelet Count 200 K/mm3 (150-400); RDW Coefficient Variation 16.5 % (11.7-14.2); RDW Standard Deviation 55.8 fL (35.1-46.3); Red Blood Cell Count 2.99 M/mm3 (3.80-5.20); White Blood Cell Count 7.75 K/mm3 (4.00-11.30)
[2019-04-27 04:01] LABS: Prothrombin Time Results 39.6 Sec (9.7-11.5)
[2019-04-27 04:02] LABS: Albumin, Blood 3.5 g/dL (3.4-5.0); Anion Gap 6 mmol/L (6-16); Blood Urea Nitrogen 88 mg/dL (8-24); CO2, Blood 26 mmol/L (21-32); Calcium, Blood 8.7 mg/dL (8.5-10.1); Chloride, Blood 97 mmol/L (98-108); Glomerular Filtration Rate 11 (60-); Glucose, Blood 294 mg/dL (70-99); Phosphorus, Blood 4.6 mg/dL (2.5-4.9); Potassium, Blood 4.7 mmol/L (3.5-5.5); Sodium, Blood 129 mmol/L (136-145)
--- NOTE | 2019-04-27 05:37 | NUR ---
UPDATE DR LORA NOTIFIED OF PATIENT'S SODIUM LEVEL THIS MORNING WELL PATIENT'S MOST RECENT BLOOD SUGAR CHECK RESULTS. ORDERS RECIEVED.
--- NOTE | 2019-04-27 07:17 | NUR ---
SHIFT SUMMARY PATIENT PLEASENT AND COOPERATIVE THROUGHOUT THE NIGHT. PATIENT WORE HER BIPAP THROUGHOUT MOST OF THE NIGHT AND WAS ON 5L VIA HIGH FLOW N/C, BEDSIDE REPORT GIVEN TO ONCOMING RN.
--- NOTE | 2019-04-27 07:54 | NUR ---
START OF SHIFT NOTE: RECEIVED REPORT FROM QUIANA SILVEIRA, ASSUMED CARE, PATIENT IS AWAKE, ALERT AND ORIENTED, ASNWERS ALL QUESTIONS APPROPRIATELY, ON 5L NC WITH HUMIDIFICATION, SATING AT 96 %, LUNG SOUNDS ARE COARSE IN BILATERAL UPPER LOBES, AND DIMINISHED IN RIGHT MIDDLE, AND LEFT/RIGHT LOWER LOBES, BOWEL TONES ARE PRESENT, MONSON CATHETER IN PLACE, DRAINING GOOD AMOUNT OF CLEAR LIGHT YELLOW URINE, PEDAL PULSES PALPABLE, PATIENT HAS A DUAL CHAMBER PPM AND IS 100 % PACED, HR IN 70'S, LEFT UPPER EXTREMITY, SHOWS EDEMA IN HAND AND FOREARM D/T INFILTRATED IV, WHICH WAS REMOVED BY NOC SHIFT, PATIENT HAS 20 G IN R AC, FLUSHES WELL, BUT WILL NEED SECOND PIV, PATIENT IS EATING BREAKFAST AND ABLE TO FEED SELF, DENIES PAIN, AFEBRILE, CALL LIGHT IN REACH, WILL CONTINUE TO MONITOR.
--- NOTE | 2019-04-27 09:26 | NUR ---
DR. GARCIA IN TO SEE PATIENT, WILL WRITE NEW ORDERS.
--- NOTE | 2019-04-27 09:55 | NUR ---
PATIENT'S SISTER CALLED AND UPDATE ON PATIENT CONDITION WAS PROVIDED.
--- NOTE | 2019-04-27 12:08 | NUR ---
PATIENT EATING LUNCH AT THIS TIME, NO PROBLEM CHEWING OR SWALLOWING, CALL LIGHT IN REACH, WILL CONTINUE TO MONITOR.
--- NOTE | 2019-04-27 13:36 | NUR ---
SPEECH IN TO CHECK ON PATIENT AND HER ABILITY TO SWALLOW, PATIENT DOING WELL, NO PROBLEM SWALLOWING, OK BY SPEECH.
--- NOTE | 2019-04-27 15:29 | NUR ---
ATTEMPTED TO CALL REPORT, SPOKE WITH CHIDI, SENIOR LINUX ENGINEER, ON MEDICAL FLOOR, SHE ASKED ME TO CALL REPORT TO MAVIS ZIMMERMAN ONCE ROOM 333 HAS BEEN CLEANED.
--- NOTE | 2019-04-27 15:32 | NUR ---
ROOM NUMBER WAS CHANGED FROM 333 TO 329 AND IT IS CLEAN, WILL TRY TO CALL REPORT.
--- NOTE | 2019-04-27 15:33 | NUR ---
SPOKE WITH RUBEN NASH, WHO IS NOW TAKING ROOM 16 INTO ROOM 329, ROOM IS CLEAN, RUBEN WILL CALL BACK SHORTLY.
--- NOTE | 2019-04-27 15:41 | NUR ---
UPDATE PROVIDED TO PATIENT FAMILY AND , NOTIFIED THAT PATIENT WILL BE MOVED TO ROOM 329 ON MEDICAL FLOOR.
--- NOTE | 2019-04-27 15:50 | NUR ---
REPORT CALLED TO RUBEN NASH RN, ON MEDICAL FLOOR, PATIENT AND TRANSFERRED TO ROOM 329 WITH CHART, HOME MEDICATIONS, AND ALL BELONGINGS.
--- NOTE | 2019-04-27 18:31 | NUR ---
PT ARRIVED TO THE FLOOR THIS AFTERNOON IN A RECLINER. PT'S SPOUSE WITH PT UPON ARRIVAL. PT ON 3L O2. PT BREATHING APPEARS EVEN AND UNLABORED. PT HAS CONTINUED TO SIT UP IN THE CHAIR VISITING WITH HER SPOUSE. PT DENIES FURTHER NEEDS AT THIS TIME.
[2019-04-28 06:17] LABS: BASOPHILS ABSOLUTE AUTO 0.01 K/mm3 (0.00-0.23); BASOPHILS PERCENT AUTO 0 % (0-2); EOSINOPHILS ABSOLUTE AUTO 0.03 K/mm3 (0.00-0.68); EOSINOPHILS PERCENT AUTO 0 % (0-6); Hematocrit 27.9 % (33.0-51.0); Hemoglobin 8.3 g/dL (11.5-16.0); IMMATURE GRAN ABSOLUTE AUTO 0.04 K/mm3 (0.00-0.10); IMMATURE GRAN PERCENT AUTO 0 % (0-1); LYMPHOCYTES ABSOLUTE AUTO 0.48 K/mm3 (0.84-5.20); LYMPHOCYTES PERCENT AUTO 5 % (21-46); MONOCYTES ABSOLUTE AUTO 0.67 K/mm3 (0.16-1.47); MONOCYTES PERCENT AUTO 7 % (4-13); Mean Corpuscular HGB 27.9 pg (26.0-34.0); Mean Corpuscular HGB Conc 29.7 g/dL (31.5-36.5); Mean Corpuscular Volume 94 fL (80-100); NEUTROPHILS ABSOLUTE AUTO 8.39 K/mm3 (1.96-9.15); NEUTROPHILS PERCENT AUTO 87 % (41-73); Platelet Count 206 K/mm3 (150-400); RDW Coefficient Variation 16.2 % (11.7-14.2); RDW Standard Deviation 55.4 fL (35.1-46.3); Red Blood Cell Count 2.98 M/mm3 (3.80-5.20); White Blood Cell Count 9.62 K/mm3 (4.00-11.30)
[2019-04-28 06:31] LABS: Base Excess Venous -1.2 mmol/L; PCO2 Venous 62.1 mmHg (38-42); PO2 Venous 92.4 mmHg (38-42); pH Blood Venous 7.23 (7.34-7.37)
[2019-04-28 06:31] LABS: International Normalized Ratio 3.5; Prothrombin Time Results 34.9 Sec (9.7-11.5)
[2019-04-28 06:33] LABS: Albumin, Blood 3.4 g/dL (3.4-5.0); Anion Gap 9 mmol/L (6-16); Blood Urea Nitrogen 98 mg/dL (8-24); Bun/Creatinine Ratio 21.5 (12.0-20.0); CO2, Blood 26 mmol/L (21-32); Calcium, Blood 8.8 mg/dL (8.5-10.1); Chloride, Blood 98 mmol/L (98-108); Creatinine, Blood 4.56 mg/dL (0.40-1.00); Glomerular Filtration Rate 10 (60-); Glucose, Blood 105 mg/dL (70-99); Phosphorus, Blood 5.2 mg/dL (2.5-4.9); Potassium, Blood 4.6 mmol/L (3.5-5.5); Sodium, Blood 133 mmol/L (136-145)
--- NOTE | 2019-04-28 07:21 | NUR ---
CRITICAL VBG REPORTED TO DR. CARO CANAS CALLED BACK AND CRITIAL VALUE OF VBG PH REPORTED TO HER. VALUE OF 7.23.
--- NOTE | 2019-04-28 07:28 | NUR ---
SHIFT SUMMARY: PATIENT IS A&OX3, ASSIST OF 1 WITH A WALKER TO THE CHAIR. BLOOD GLUCOSE AND VS ARE STABLE. NO COMPLIANTS OF PAIN. MONSON IS PATENT FOR A LARGE AMOUNT OF URINE, SEE FLOW SHEET. PATIENT DID NOT SLEEP WELL, MOVED BACK AND FORTH FROM BED TO CHAIR. DENIED NEED OF SLEEP AIDE.
--- NOTE | 2019-04-28 10:05 | NUR ---
PT TITRATED TO 1L O2. PT TITRATED TO 1L O2 THIS AM. PT TOLERATING WELL. DESATS WITHOUT O2 AT THIS TIME.
--- NOTE | 2019-04-28 16:39 | NUR ---
RETENTION PT HAS NOT VOIDED SINCE MONSON WAS REMOVED AT NOON. PT BLADDER SCANNED 451. PT UNABLE TO PEE. DR. CANAS NOTIFIED. MONSON ORDER RECIEVED. WILL REPLACE MONSON AND CONTINUE TO MONITOR.
--- NOTE | 2019-04-28 16:49 | NUR ---
SHIFT SUMMARY PT TITRATED TO 1L O2 THIS SHIFT. TOLERATING WELL. PT RECIEVED SHOWER THIS SHIFT. AMBULATING 1P ASSIST TO BATHROOM. PT SLOW MOVING BUT MOVING WELL. PT MONSON REMOVED AT NOON. PT HAS NOT VOIDED SO NEW MONSON ORDERED FOR RETENTION & STRICT I&OS. PT AGREED TO PLACEMENT AFTER DINNER. NO OTHER CHANGES IN ASSESSMENT AT THIS TIME. VSS. WILL CONTINUE TO MONITOR UNTIL TURNOVER IS COMPLETE.
[2019-04-28 18:19] LABS: Source, Urine Catheter
[2019-04-28 18:44] LABS: Appearance, Urine Hazy (Clear); Bilirubin, Urine Neg (Neg); Blood, Urine Neg (Neg); Color, Urine Yellow (P-Yellow); Glucose Qualitative, Urine Neg (Neg); Ketones, Urine Neg (Neg); Leukocyte Esterase, Urine 1+ (Neg); Nitrite, Urine Neg (Neg); Protein, Urine 1+ (Neg); Specific Gravity, Urine 1.015 (1.003-1.022); Urobilinogen, Urine NORM (Normal)
[2019-04-28 18:57] LABS: Red Blood Cells, Urine 0-2 /hpf (0-2)
[2019-04-28 18:58] LABS: Amorphous Light (0-Heavy); Bacteria Few /hpf; Squamous Epithelial Cells Few /hpf (Few)
--- NOTE | 2019-04-29 01:30 | NUR ---
Pt very terse in talking to nurse. Received analgesic (see MAR) for "hip" pain. DOubled up fist and verablized anger at nurse when nurse asked her what he could do to help. Behavior redirected, call light in reach. Will continue to monitor.
[2019-04-29 07:52] LABS: BASOPHILS ABSOLUTE AUTO 0.01 K/mm3 (0.00-0.23); BASOPHILS PERCENT AUTO 0 % (0-2); EOSINOPHILS ABSOLUTE AUTO 0.04 K/mm3 (0.00-0.68); EOSINOPHILS PERCENT AUTO 1 % (0-6); Hematocrit 26.5 % (33.0-51.0); Hemoglobin 8.1 g/dL (11.5-16.0); IMMATURE GRAN ABSOLUTE AUTO 0.03 K/mm3 (0.00-0.10); IMMATURE GRAN PERCENT AUTO 0 % (0-1); LYMPHOCYTES PERCENT AUTO 6 % (21-46); MONOCYTES ABSOLUTE AUTO 0.56 K/mm3 (0.16-1.47); MONOCYTES PERCENT AUTO 8 % (4-13); Mean Corpuscular HGB 27.8 pg (26.0-34.0); Mean Corpuscular HGB Conc 30.6 g/dL (31.5-36.5); Mean Platelet Volume 10.7 fL (9.1-12.4); NEUTROPHILS ABSOLUTE AUTO 6.12 K/mm3 (1.96-9.15); NEUTROPHILS PERCENT AUTO 86 % (41-73); Platelet Count 203 K/mm3 (150-400); RDW Coefficient Variation 16.1 % (11.7-14.2); RDW Standard Deviation 53.1 fL (35.1-46.3); Red Blood Cell Count 2.91 M/mm3 (3.80-5.20); White Blood Cell Count 7.16 K/mm3 (4.00-11.30)
[2019-04-29 08:04] LABS: International Normalized Ratio 2.41; Prothrombin Time Results 24.5 Sec (9.7-11.5)
[2019-04-29 08:05] LABS: Albumin, Blood 3.3 g/dL (3.4-5.0); Anion Gap 10 mmol/L (6-16); Blood Urea Nitrogen 101 mg/dL (8-24); Bun/Creatinine Ratio 21.8 (12.0-20.0); CO2, Blood 25 mmol/L (21-32); Calcium, Blood 8.8 mg/dL (8.5-10.1); Chloride, Blood 97 mmol/L (98-108); Creatinine, Blood 4.64 mg/dL (0.40-1.00); Glomerular Filtration Rate 10 (60-); Glucose, Blood 105 mg/dL (70-99); Mean Corpuscular Volume 91 fL (80-100); Phosphorus, Blood 5.3 mg/dL (2.5-4.9); Potassium, Blood 4.2 mmol/L (3.5-5.5); Sodium, Blood 132 mmol/L (136-145)
--- NOTE | 2019-04-29 17:04 | NUR ---
SHIFT SUMMARY- PT IS A/O PLESANT AND COOPERATIVE, SHE HAS SOME INTERMITENT CONFUSION. PT IS UP IN HER CHAIR MOST OF THIS SHIFT, AT BEDSIDE. PT WILL BE STARTED ON A HEPRIN DRIP. HER KIDNEY FUNCTION HAS NOT IMPROVED AND WILL BE STARTED ON DILAYSIS, SHE WILL GO TOMORROW FOR PERMACATH PLACMENT TOMORROW. SHE HAS BEEN EATING AND DRINKING WELL. SHE HAS A MONSON IN PLACE WHICH IS PATIENT AND DRAINING. HER WAS AT THE BEDSIDE THIS AFTERNOON. SHE IS WORKING WITH RT. SHE COMPLAINS OF HIP PAIN AND IS BEING TREATED PER MAR AND REPOSITIONING HELPS.
[2019-04-30 00:55] LABS: Albumin, Blood 3.1 g/dL (3.4-5.0); Anion Gap 10 mmol/L (6-16); Blood Urea Nitrogen 102 mg/dL (8-24); Bun/Creatinine Ratio 21.9 (12.0-20.0); CO2, Blood 27 mmol/L (21-32); Calcium, Blood 8.3 mg/dL (8.5-10.1); Chloride, Blood 97 mmol/L (98-108); Creatinine, Blood 4.65 mg/dL (0.40-1.00); Glomerular Filtration Rate 10 (60-); Glucose, Blood 107 mg/dL (70-99); Phosphorus, Blood 5.8 mg/dL (2.5-4.9); Potassium, Blood 3.5 mmol/L (3.5-5.5); Sodium, Blood 134 mmol/L (136-145)
--- NOTE | 2019-04-30 03:21 | NUR ---
PT HAS BEEN RESTING WITH FEW INTERRUPTIONS SINCE BEING ASSISTED TO BED FROM THE BEDSIDE CHAIR TO SLEEP. HEPARIN DRIP CONTINUES - NEXT APTT DRAW AT 0800. MORE ALERT AND LESS TERSE TO STAFF THIS SHIFT THAN NOTICED 24 HR PREVIOUS. MONSON DRAINING YELLOW. CALL LIGHT IN REACH. TYLENOL PO X 1 THIS SHIFT FOR C/O HIP PAIN.
[2019-04-30 15:41] LABS: International Normalized Ratio 1.64; Prothrombin Time Results 17.1 Sec (9.7-11.5)
--- NOTE | 2019-04-30 18:10 | NUR ---
ALERT WITH PERIODS OF CONFUSION. NPO AFTER MIDNITE FOR PERMACATH PLACEMENT TOMORROW. INR OK FOR SURGERY. HEPARIN RUNNING. HIP PAIN T/O DAY AND MEDICATED FOR IT WITH MODERATE RELIEF. LOAN REVIEW OFFICER AWARE OF PATIENT HAVING CATH PLACEMENT. MONSON D'C PER . UNLABORED RESPIRATIONS. WCTM
--- NOTE | 2019-04-30 21:49 | NUR ---
PT VOIDED INCONT. FIRST VOID POST CATHETER REMOVAL
--- NOTE | 2019-04-30 22:55 | NUR ---
NOTED RECENT APTT OF 62.9. REVIEWED THIS WITH PHARMACY, NO CHANGE IN HEPARIN DOSING.
--- NOTE | 2019-05-01 02:11 | NUR ---
PT HAS BEEN RESTING WITH FEW INTERRUPTIONS THIS SIFT. SFFECT MORE ATTENTIVE AND CHEERFUL WHEN AWAKE. HEPARIN DRIP CONITINUESAT 13 UNITS OR 19.5 ML/HR. NEXT BLOOD DRAW SCHEDULED FOR 0800. CALL LIGHT IN REACH. HAS VOIDED THIS SHIFT.
[2019-05-01 04:07] LABS: HBSAG SCREEN Negative (Negative); HEP A AB, IGM Negative (Negative); HEP B CORE AB, IGM Negative (Negative); HEP C VIRUS AB <0.1 (0.0-0.9)
[2019-05-01 05:39] LABS: BASOPHILS ABSOLUTE AUTO 0.03 K/mm3 (0.00-0.23); BASOPHILS PERCENT AUTO 0 % (0-2); EOSINOPHILS ABSOLUTE AUTO 0.12 K/mm3 (0.00-0.68); EOSINOPHILS PERCENT AUTO 2 % (0-6); Hematocrit 25.3 % (33.0-51.0); Hemoglobin 7.9 g/dL (11.5-16.0); IMMATURE GRAN ABSOLUTE AUTO 0.03 K/mm3 (0.00-0.10); IMMATURE GRAN PERCENT AUTO 0 % (0-1); LYMPHOCYTES ABSOLUTE AUTO 0.51 K/mm3 (0.84-5.20); LYMPHOCYTES PERCENT AUTO 7 % (21-46); MONOCYTES ABSOLUTE AUTO 0.77 K/mm3 (0.16-1.47); MONOCYTES PERCENT AUTO 10 % (4-13); Mean Corpuscular HGB 27.9 pg (26.0-34.0); Mean Corpuscular HGB Conc 31.2 g/dL (31.5-36.5); Mean Corpuscular Volume 89 fL (80-100); Mean Platelet Volume 10.6 fL (9.1-12.4); NEUTROPHILS ABSOLUTE AUTO 6.27 K/mm3 (1.96-9.15); NEUTROPHILS PERCENT AUTO 81 % (41-73); Platelet Count 188 K/mm3 (150-400); RDW Coefficient Variation 16.2 % (11.7-14.2); RDW Standard Deviation 52.8 fL (35.1-46.3); Red Blood Cell Count 2.83 M/mm3 (3.80-5.20); White Blood Cell Count 7.73 K/mm3 (4.00-11.30)
[2019-05-01 05:52] LABS: International Normalized Ratio 1.59; Prothrombin Time Results 16.6 Sec (9.7-11.5)
[2019-05-01 05:59] LABS: Albumin, Blood 3.2 g/dL (3.4-5.0); Anion Gap 9 mmol/L (6-16); Blood Urea Nitrogen 107 mg/dL (8-24); CO2, Blood 28 mmol/L (21-32); Calcium, Blood 8.4 mg/dL (8.5-10.1); Chloride, Blood 97 mmol/L (98-108); Creatinine, Blood 4.45 mg/dL (0.40-1.00); Glomerular Filtration Rate 10 (60-); Glucose, Blood 100 mg/dL (70-99); Potassium, Blood 3.2 mmol/L (3.5-5.5); Sodium, Blood 134 mmol/L (136-145)
--- NOTE | 2019-05-01 07:20 | NUR ---
MD called earlier to stop heparin drip for procedure today. Heparin stopped at 0600 and Pharmacy notified. Pharmacist stated it would DC the Heparin and if the MD wanted to start it back up he would have to reorder it. AM nurse notified, and will follow up.
--- NOTE | 2019-05-01 10:41 | NUR ---
DR STOKES AND AYLEEN AWARE OF ICD IN LEFT CHEST WALL, NOT TURNED OFF FOR SURGERY.
--- NOTE | 2019-05-01 14:38 | NUR ---
Pt gave permission on 05/01/19 to assist in care tomorrow 05/02/19.
--- NOTE | 2019-05-01 15:10 | NUR ---
PER DO NOT NEED TO RESTART HEPARIN. POSSIBLE D'C TOMORROW. SOCIAL IS WORKING ON INSURANCE APPROVAL FOR OUT PATIENT DIALYSIS. LEFT MESSAGE ON AMELIA WARD, PHONE ABOUT POSSIBLE D'C TOMORROW AND SHE CAN LET AND DAUGHTER KNOW.
--- NOTE | 2019-05-01 16:25 | NUR ---
PATIENT RETURNS FROM OR PACU AFTER PERMACATH PLACEMENT AT ABOUT 1215. DROWSEY, BUT AMBULATORY FROM PACU BED TO MEDICAL FLOOR BED. DROWSES OFF WHEN QUESTIONED, BUT ANSWERS APPROPRIATELY. SOME OOZING OF BLOOD OBSERVED AT ENTRANCE SITE RT CHEST WALL WITH 4X4 DRESSING TAPED TO AREA. NO NEED FOR HEPARIN RESTART PER . USES CALL LIGHT APPROPRIATELY, BUT SOMETIMES IMPULSIVE. AWARE TO HAVE DIALYSIS TODAY AND GET BLOOD TRANSFUSION. PER BATH MIXER WILL BE DOING IN ROOM IN ABOUT 1/2 HOUR. HAS NOT BEEN INCONTINENT. OXYGEN OFF WAS 99% AFTER AMBULATORY IN HALLWAY. DENIES PAIN AT THIS TIME. TM
[2019-05-02 05:39] LABS: BASOPHILS ABSOLUTE AUTO 0.02 K/mm3 (0.00-0.23); BASOPHILS PERCENT AUTO 0 % (0-2); EOSINOPHILS ABSOLUTE AUTO 0.08 K/mm3 (0.00-0.68); EOSINOPHILS PERCENT AUTO 1 % (0-6); Hematocrit 28.2 % (33.0-51.0); Hemoglobin 8.6 g/dL (11.5-16.0); IMMATURE GRAN ABSOLUTE AUTO 0.03 K/mm3 (0.00-0.10); IMMATURE GRAN PERCENT AUTO 0 % (0-1); LYMPHOCYTES PERCENT AUTO 7 % (21-46); MONOCYTES ABSOLUTE AUTO 0.79 K/mm3 (0.16-1.47); MONOCYTES PERCENT AUTO 11 % (4-13); Mean Corpuscular HGB 27.7 pg (26.0-34.0); Mean Corpuscular HGB Conc 30.5 g/dL (31.5-36.5); Mean Corpuscular Volume 91 fL (80-100); Mean Platelet Volume 10.5 fL (9.1-12.4); NEUTROPHILS PERCENT AUTO 80 % (41-73); Platelet Count 177 K/mm3 (150-400); RDW Coefficient Variation 16.5 % (11.7-14.2); RDW Standard Deviation 53.9 fL (35.1-46.3); White Blood Cell Count 7.12 K/mm3 (4.00-11.30)
[2019-05-02 06:00] LABS: Albumin, Blood 3.4 g/dL (3.4-5.0); Albumin/Globulin Ratio 1.2 (0.8-1.8); Bilirubin, Total 0.9 mg/dL (0.1-1.0); Bun/Creatinine Ratio 22.1 (12.0-20.0); Calcium, Blood 8.4 mg/dL (8.5-10.1); Creatinine, Blood 2.85 mg/dL (0.40-1.00); Globulin, Blood 2.9 g/dL (2.2-4.0); Phosphorus, Blood 3.7 mg/dL (2.5-4.9); Potassium, Blood 3.4 mmol/L (3.5-5.5); Total Protein, Blood 6.3 g/dL (6.4-8.2)
--- NOTE | 2019-05-02 07:28 | NUR ---
SHIFT SUMMARY AOX4, FORGETFUL @TIMES. VSS. DENIES DYSPNEA OR N/V. REPORTS MILD PAIN IN HIPS WHICH IS RELIEVED W/REPOSITIONING & HEATING PAD. PT HAD DIALYSIS LAST NIGHT & RECIEVED 1U PRBC W/DIALYSIS. PERMACATH TO RUCW WAS LEAKING SMALL AMOUNT BLOOD, REINFORCED W/SOME 2X2 GAUZE & INFORMED DAY SHIFT RN. PT UP MULTIPLE TIMES TO USE BSC W/1 ASSIST. PT STATES SHE FEELS "MUCH BETTER" & THAT SHE COULD WALK ALL OVER. CALL LIGHT IN REACH.
[2019-05-02] MEDS ORDERED: FURO40 PO (14:55)
[2019-05-02] MEDS ORDERED: OMEP20ER PO (15:02)
[2019-05-02] MEDS ORDERED: PRAM.5 PO (15:03)
[2019-05-02] MEDS ORDERED: ALBU90OI INH (15:04)
[2019-05-02] MEDS ORDERED: ACET325 PO (15:05)
--- NOTE | 2019-05-02 15:45 | NUR ---
Patient discharged home with home health, appointments set up with ruben and karime set up, powerglide removed, medications faxed to [facility].
--- NOTE | 2019-05-02 17:51 | NUR ---
Initial spiritual care note: Emma was welcoming of prayer and spiritual encouragement. She is happy to be going home soon. She denies concerns and expressed deep love for family. She appears well loved and supported. Prayer for continued healing provided.
[2019-05-03 03:07] LABS: HBSAG SCREEN Negative (Negative); HEP A AB, IGM Negative (Negative); HEP B CORE AB, IGM Negative (Negative); HEP C VIRUS AB <0.1 (0.0-0.9)
== END 2019-05-02 15:42 | disposition home or self-care (01) | DRG 291 ==
LOC: ER 12:07 → MEDS 14:31 → ICUW 14:31 → PCU 14:31 → ICUW 04-26 01:38 → MEDS 04-27 15:54
PROVIDERS: Emergency Medicine; Family Medicine; Internal Medicine; Internal Medicine Critical Care Medicine; Nurse Practitioner Acute Care; Surgery; ADMIT Internal Medicine
PROC: 30233N1 Transfusion of Nonautologous Red Blood Cells into Peripheral Vein, Percutaneous Approach (ICD-10-PCS; 2019-04-30)
PROC: 5A1D70Z Performance of Urinary Filtration, Intermittent, Less than 6 Hours Per Day (ICD-10-PCS; 2019-05-01)
PROC: 02HV33Z Insertion of Infusion Device into Superior Vena Cava, Percutaneous Approach (ICD-10-PCS; principal; 2019-05-01 10:30)
DX: I13.2 Hypertensive heart and chronic kidney disease with heart failure and with stage 5 chronic kidney disease, or end stage renal disease (principal); I50.33 Acute on chronic diastolic (congestive) heart failure; J96.02 Acute respiratory failure with hypercapnia; J96.01 Acute respiratory failure with hypoxia; J18.0 Bronchopneumonia, unspecified organism; N18.5 Chronic kidney disease, stage 5; N17.9 Acute kidney failure, unspecified; I48.20 Chronic atrial fibrillation, unspecified; I48.21 Permanent atrial fibrillation; E11.22 Type 2 diabetes mellitus with diabetic chronic kidney disease; Z99.2 Dependence on renal dialysis; Z79.01 Long term (current) use of anticoagulants; Z95.810 Presence of automatic (implantable) cardiac defibrillator; Z95.2 Presence of prosthetic heart valve; E03.9 Hypothyroidism, unspecified; E11.9 Type 2 diabetes mellitus without complications; F41.8 Other specified anxiety disorders; J06.9 Acute upper respiratory infection, unspecified; R53.81 Other malaise; E11.649 Type 2 diabetes mellitus with hypoglycemia without coma
CPT/HCPCS: 0099U; 36415; 36430; 36600; 51702; 71045; 71046; 77001; 80053; 80069; 80074; 81001; 82550; 82728; 82803; 82947; 83540; 83550; 83605; 83735; 83880; 84100; 84443; 84484; 85025; 85610; 85730; 86317; 86850; 86900; 86901; 86923; 87040; 87070; 87086; 87205; 92610; 93005; 93010; 93306; 94640; 94660; 94760; 94761; 94762; 96365; 96367; 96375; 96376; 97110; 97116; 97162; 97166; 97530; 97535; 99285-25; A9270; C1750; C1751; J0360; J0690; J0696; J0881; J1630; J1642; J1644; J1815; J1940; J1956; J2250; J2405; J2704; J2930; J3010; J3475; J7030; J7042; J7120; P9016; P9046

== ENCOUNTER → 2019-05-08 | Outpatient (CLI) | payer OTHER ==
[~2019-05-08] MED LIST changes: +ALBU90OI INH; +BENZ100A PO; +Bumetanide2 MG PO; +Calcitriol0.5 MCG PO; +FERSU300 PO; +HYDRA25 PO; +Heartburn Relie20 MG PO; +K-Dur 20 meq T20 MEQ PO; +METO100ER PO; +OMEP20ER PO; +OMEPRAZOLE20 MG PO; +PACERONE100 M1 PO; +PRAVASTATIN SOD20 MG PO; +SYNTHROID88 MCG PO; +THERA-D2000 UNIT PO
[2019-05-08 16:45] LABS: Adenovirus F 40/41 Not Detected (NOT DETECT); Astrovirus Not Detected (NOT DETECT); Campylobacter Sp Not Detected (NOT DETECT); Cryptosporidium Not Detected (NOT DETECT); Cyclospora Cayetanensis Not Detected (NOT DETECT); E. Coli O157 Not Detected (NOT DETECT); Entamoeba Histolytica Not Detected (NOT DETECT); Enteroaggregative E. coli-EAEC Not Detected (NOT DETECT); Enteropathogenic E. coli-EPEC Not Detected (NOT DETECT); Enterotoxigenic E. coli-ETEC Not Detected (NOT DETECT); Giardia Lamblia Not Detected (NOT DETECT); Plesiomonas Shigelloides Not Detected (NOT DETECT); Salmonella Sp Not Detected (NOT DETECT); Shiga Toxin-prod E. coli-STEC Not Detected (NOT DETECT); Shigella/Enteroin E. coli-EIEC Not Detected (NOT DETECT); Vibrio Cholerae Not Detected (NOT DETECT); Vibrio Sp Not Detected (NOT DETECT); Yersinia Enterocolitica Not Detected (NOT DETECT)
[2019-05-08 16:46] LABS: Norovirus GI/GII Not Detected (NOT DETECT); Rotavirus A Not Detected (NOT DETECT); Sapovirus Not Detected (NOT DETECT)
== END | disposition home or self-care (01) ==
LOC: OLS 14:33 → LAB SHORT 14:33
PROVIDERS: Hospitalist
DX: A06.1 Chronic intestinal amebiasis (principal)
CPT/HCPCS: 0097U

== ENCOUNTER 2019-05-16 13:00 | Inpatient (IN) | payer OTHER ==
[~2019-05-16] VITALS: Ht 167.6 cm; Wt 93.2 kg
[2019-05-16] MEDS ORDERED: Bumetanide2 MG PO ×4 (15:50)
[2019-05-16] MEDS ORDERED: ISODIN10 PO (15:51)
[2019-05-16] MEDS ORDERED: HYDR10 PO ×2 (15:51)
--- NOTE | 2019-05-16 20:15 | NUR ---
PT TO ICU 16 FROM DIALYSIS
--- NOTE | 2019-05-17 | NUR ---
ASSUMPTION OF CARE ASSUMED CARE OF PT POST DIALYSIS, PT AWAKE IN BED ORIENTED TO SELF, FAMILY, EVENT AND FOLLOWING DIRECTIONS. O2 SATURATIONS MAINTAINED>90% ON 2L PER NC. MONITOR SHOWS DUAL PACED, HR 60'S-70'S, BP STABLE, MILDLY HYPERTENSIVE. SHORT, NON-SUNSTAINED RUN OF V TACH (SEE RHYTHM STRIP IN CHART), PT DENIES CP AND SOB, UP IN BED EATING, ASYMPTOMATIC. PT INCONTINENT OF URINE AND STOOL, ATTENDS IN PLACE. PT THACKER, REPOSITIONS SELF IN BED, DECLINES SCD'S. DAUGHTER IN ROOM STS PT HAS HAD ISSUES WITH INTERMITTENT DIARRHEA, TEST IN PTS CHART FROM 05/08/19 SHOWS NEGATIVE FOR C. DIFF. DAUGHTER STS PT HAS HAD RECENT MEMORY ISSUES, BUT IS USUALLY "QUICK WHIP". PT COMPLAINS OF HUNGER, STS HAS NOT EATEN ALL DAY. TRAY BROUGHT TO PT, TOLERATING PO INTAKE. 2100 CBG DRAWN DURING MEAL, RESULT OF 60. ORANGE JUICE PROVIDED, FOLLOW UP CBG 88, ADDITIONAL APPLE JUICE PROVIDED, FOLLOW UP CBG 112. PT PLACED ON BIPAP WHILE SLEEPING, TOLERATING WELL.
[2019-05-17 04:27] LABS: BASOPHILS ABSOLUTE AUTO 0.02 K/mm3 (0.00-0.23); BASOPHILS PERCENT AUTO 0 % (0-2); EOSINOPHILS ABSOLUTE AUTO 0.09 K/mm3 (0.00-0.68); EOSINOPHILS PERCENT AUTO 2 % (0-6); IMMATURE GRAN ABSOLUTE AUTO 0.02 K/mm3 (0.00-0.10); IMMATURE GRAN PERCENT AUTO 0 % (0-1); LYMPHOCYTES PERCENT AUTO 12 % (21-46); MONOCYTES ABSOLUTE AUTO 0.71 K/mm3 (0.16-1.47); MONOCYTES PERCENT AUTO 12 % (4-13); Mean Corpuscular HGB 28.8 pg (26.0-34.0); Mean Corpuscular HGB Conc 29.6 g/dL (31.5-36.5); Mean Corpuscular Volume 97 fL (80-100); Mean Platelet Volume 11.3 fL (9.1-12.4); NEUTROPHILS ABSOLUTE AUTO 4.18 K/mm3 (1.96-9.15); NEUTROPHILS PERCENT AUTO 73 % (41-73); Platelet Count 127 K/mm3 (150-400); RDW Coefficient Variation 17.8 % (11.7-14.2); RDW Standard Deviation 61.8 fL (35.1-46.3); Red Blood Cell Count 2.78 M/mm3 (3.80-5.20); White Blood Cell Count 5.72 K/mm3 (4.00-11.30)
[2019-05-17 04:48] LABS: Albumin, Blood 2.9 g/dL (3.4-5.0); Albumin/Globulin Ratio 1.1 (0.8-1.8); Bilirubin, Total 0.7 mg/dL (0.1-1.0); Bun/Creatinine Ratio 10.5 (12.0-20.0); Calcium, Blood 8.4 mg/dL (8.5-10.1); Creatinine, Blood 2.47 mg/dL (0.40-1.00); Globulin, Blood 2.7 g/dL (2.2-4.0); Phosphorus, Blood 3.6 mg/dL (2.5-4.9); Potassium, Blood 3.6 mmol/L (3.5-5.5); Total Protein, Blood 5.6 g/dL (6.4-8.2); Troponin I 0.016 ng/mL (0.000-0.040)
--- NOTE | 2019-05-17 06:46 | NUR ---
SHIFT SUMMARY PT RESTED THROUGH NIGHT, TOLERATED BIPAP FOR APPROX 6.5 HOURS, CURRENLTLY ON NC @ 2L. MONITOR SHOWS PACED RHYTHM, HR 60'S-70'S, BP STABLE, MILDLY HYPERTENSIVE. PT UP TO BSC THIS AM FOR VOID, 1 PERSON ASSIST, NO BM THIS SHIFT, TOLERATING PO INTAKE. PT USING CALL LIGHT APPROPRIATELY. SOME CONFUSION THIS AM AFTER WAKING UP, PT THOUGHT SHE WAS IN [place], PT EASILY REDIRECTABLE/REORIENTED. PT DENIES ANY CP/SOB/PAIN AT THIS TIME.
--- NOTE | 2019-05-17 07:45 | NUR ---
BEDSIDE REPORT TAKEN AT 0715. PT AWAKE SITTING UPRIGHT IN BED. PT ON 2L O2 VIA N/C. PT RESP EVEN AND UNLABORED, PT W/O COMPLAINTS. HD SCHEDULED FOR THIS AM. DR CONNER GIVEN UPDATE; PT NOW PCU STATUS.
--- NOTE | 2019-05-17 10:41 | NUR ---
PT SBA TO COMMODE, SCANT AMT OF URINE PASSED. PT TO HD AT 0905.
--- NOTE | 2019-05-17 14:29 | NUR ---
PT BACK TO ICU 16 AFTER HD. PT ALERT AND AWAKE. C/O LEG CRAMP, PT SBA TO CHAIR WHICH RESOLVED LEG CRAMP. VSS. LUNCH GIVEN. PT READING NEWSPAPER AND VISITING DAUGHTER. O2 REMOVED. STATS 95% ON RA
--- NOTE | 2019-05-17 15:57 | NUR ---
PT INCONTINENT OF STOOL, FOUND STANDING UNASSISTED, ATTEMPTING TO CLEAN SELF. PT CLEANED, NEW GOWN PLACED. [place] ORDERED FOR YEAST UNDER LEFT BREAST. TAB ALARM PLACED. PT CAN STATE NAME, PLACE, AND YEAR BUT APPEARS TO HAVE CONFUSED COVERSATION; VERY FORGETFUL.
--- NOTE | 2019-05-17 17:14 | NUR ---
PT'S FAMILY MEMBER, SYLVIA MENDEZ REQUEST TO SEE PALIATIVE CARE R/T FILLING OUT ADVANCE DIRECTIVE. LUIS ENRIQUE NOTIFIED AND DOWN WITHIN 10MIN, UNFORTUNATELY FAMILY MEMBER LEFT PRIOR TO LUIS ENRIQUE COMING DOWN. PT TOO CONFUSED TO PARTICIPATE W/O FAMILY. PT BECOMING INCREASINGLY MORE CONFUSED SHIFT PROGRESSES. TAB ALARM ON PT.
--- NOTE | 2019-05-17 17:20 | NUR ---
Received call from bedside RN Merced and discussed case. Merced reports family would like to discuss completing an advanced directive. Arrived to Pt's room and family has left. As this RN enters Pt's room, she is finsihing a phone convesation and states "I have to go a [place] seamer is here to talk to me". Pt is A&OX2/3 and denies pain at this time. Pt appears moderately consufsed as evidenced by the start of conversations by Pt then being easliy distracted into other conversations. Often times engages in word salad. Spoke with bedside RN Merced and suggested Pt completing an advanced directive may not be appropriate. Palliative Care will remain available.
--- NOTE | 2019-05-17 18:56 | NUR ---
SPOKE Dain LAGUNA, PT'S DAUGHTER. JASE STATES PT HAS NO HISTORY OF CONFUSION OR DEMENTIA, AND THAT "THE CURRENT CONFUSION IS NO WHERE NEAR HER BASELINE". GUILLERMINA STATES THE ONLY TIME SHE HAS SEEN HER MOTHER THIS WAY IS WHEN HER MOTHER HAS A UTI. JASE REQUEST THAT WE SEND A UA. WILL ASK MD ABOUT THIS; PT HAS MADE MAYBE 50CC URINE TODAY PRIOR TO HD; JASE NOTIFIED THAT PT MAY NOT MAKE URINE FOR SOME TIME SHE HAS HAD TWO DAYS OF HD, FOLLOWED BY ANOTHER PLANNED FOR TOMORROW. DAUGHTER STATES THAT SHE IS COMFORTABLE HAVING A POLST FILLED OUT AT HER NEXT PCP APPOINTMENT.
--- NOTE | 2019-05-17 20:00 | NUR ---
ASSUMPTION OF CARE: PT APPEARS ALERT AND ORIENTED WITH MOMENTS OF CONFUSION. HER SPEECH IS SLIGHTLY SLURRED AT TIMES. LUNG SOUNDS ARE CLEAR HOWEVER SHE IS SHALLOW BREATHING. SPO2 >90% ON RA. HR IS 60-70S, SBP IN THE 150S. SHE IS DUAL CHAMBER PACED. SHE HAS BEEN INCONTINENT OF BOWEL AND BLADDER. SHE IS PRODUCING LITTLE URINE AT THIS TIME. SHE IS A DIALYSIS PATIENT AND HAS A PERMACATH IN HER RIGHT CHEST. RAC IV IS PATENT AND SL. PT HAS NO COMPLAINTS AT THIS TIME. WILL CONTINUE TO MONITOR
[2019-05-18 04:10] LABS: BASOPHILS ABSOLUTE AUTO 0.02 K/mm3 (0.00-0.23); BASOPHILS PERCENT AUTO 0 % (0-2); EOSINOPHILS ABSOLUTE AUTO 0.09 K/mm3 (0.00-0.68); EOSINOPHILS PERCENT AUTO 2 % (0-6); Hemoglobin 8.6 g/dL (11.5-16.0); IMMATURE GRAN ABSOLUTE AUTO 0.02 K/mm3 (0.00-0.10); IMMATURE GRAN PERCENT AUTO 0 % (0-1); LYMPHOCYTES ABSOLUTE AUTO 0.75 K/mm3 (0.84-5.20); LYMPHOCYTES PERCENT AUTO 14 % (21-46); MONOCYTES ABSOLUTE AUTO 0.84 K/mm3 (0.16-1.47); MONOCYTES PERCENT AUTO 15 % (4-13); Mean Corpuscular HGB 28.7 pg (26.0-34.0); Mean Corpuscular HGB Conc 29.7 g/dL (31.5-36.5); Mean Corpuscular Volume 97 fL (80-100); Mean Platelet Volume 10.7 fL (9.1-12.4); NEUTROPHILS ABSOLUTE AUTO 3.81 K/mm3 (1.96-9.15); NEUTROPHILS PERCENT AUTO 69 % (41-73); Platelet Count 107 K/mm3 (150-400); RDW Coefficient Variation 18.4 % (11.7-14.2); RDW Standard Deviation 62.1 fL (35.1-46.3); White Blood Cell Count 5.53 K/mm3 (4.00-11.30)
[2019-05-18 04:31] LABS: Albumin, Blood 3.2 g/dL (3.4-5.0); Albumin/Globulin Ratio 1.1 (0.8-1.8); Bilirubin, Total 0.7 mg/dL (0.1-1.0); Bun/Creatinine Ratio 11.4 (12.0-20.0); Calcium, Blood 8.9 mg/dL (8.5-10.1); Creatinine, Blood 3.42 mg/dL (0.40-1.00); Globulin, Blood 2.9 g/dL (2.2-4.0); Magnesium, Blood 2.3 mg/dL (1.6-2.4); Phosphorus, Blood 3.7 mg/dL (2.5-4.9); Potassium, Blood 3.3 mmol/L (3.5-5.5); Total Protein, Blood 6.1 g/dL (6.4-8.2)
[2019-05-18 04:32] LABS: Percent Saturation 11.5 % (15.0-50.0)
--- NOTE | 2019-05-18 06:06 | NUR ---
PT WITH IMAGING FOR CXRAY. PT TRANSPORTED VIA WHEELCHAIR. ON TELEBOX
--- NOTE | 2019-05-18 06:07 | NUR ---
SUMMARY: NO ACUTE CHANGES THROUGHOUT SHIFT. PT MAINLY A &O WITH SOME INCREASED CONFUSION TOWARDS THE AM. VITALS STABLE. REMAINS DUAL PACED. BREATH SOUNDS CLEAR AND BECOMES DYSPNEIC WITH MOVEMENT. SHE IS ABLE TO STAND WITH MINIMAL ASSISTANCE. PT HAD A COUPLE VERY SMALL BMS. WAS INCONTINENT OF URINE A COUPLE TIMES BUT WAS ABLE TO PROVIDE A SMALL AMOUNT OF URINE FOR A UA. RAC IV PATENT AND SL. BLOOD SUGARS HAVE NOT REQUIRED COVERAGE. FOOD PREFERENCES PLACED PER PT REQUEST. WILL PASS REPORT OFF TO NEXT SHIFT
[2019-05-18 06:23] LABS: Source, Urine Voided
--- NOTE | 2019-05-18 06:32 | NUR ---
BACK FROM IMAGING. PLACED BACK ON MONITOR. CURRENTLY RESTING COMFORTABLY IN BED
[2019-05-18 06:38] LABS: Appearance, Urine Turbid (Clear); Bilirubin, Urine Neg (Neg); Blood, Urine 1+ (Neg); Color, Urine Yellow (P-Yellow); Glucose Qualitative, Urine Neg (Neg); Ketones, Urine Neg (Neg); Leukocyte Esterase, Urine 3+ (Neg); Nitrite, Urine Neg (Neg); Protein, Urine 3+ (Neg); Specific Gravity, Urine 1.015 (1.003-1.022); Urobilinogen, Urine NORM (Normal)
[2019-05-18 06:59] LABS: Red Blood Cells, Urine 0-2 /hpf (0-2); Squamous Epithelial Cells Rare /hpf (Few); White Blood Cells, Urine TNTC /hpf (0-5)
[2019-05-18 07:00] LABS: Bacteria Mod /hpf; Yeast/Fungi Urine Many /hpf
[2019-05-18] MEDS ORDERED: PACERONE100 M1 PO ×2 (12:28)
[2019-05-18] MEDS ORDERED: FURO80 PO ×2 (12:29)
--- NOTE | 2019-05-18 15:18 | NUR ---
SUMMARY Pt A&O x 1. Follows directions. Able to verbalize needs. Confused speech. Pt's daughter in to see pt early this AM. States concern that pt may have a UTI. Discussed urinalysis. States that pt's confusion is similar to that she experiences with a UTI. This RN asked if she was comfortable with the patient going home today, she states "yes". Disccused pt's tendency for delirium during hospitalizations. Dr Mock in to see pt. Urinalysis discussed. Plan for urine cultures to result before antibiotics are prescribed. Pt had dialysis treatment. New medications faxed to [facility]. Discharge education given to pt's caregiver. Pt escorted to caregiver's vehicle via wheelchair, accompanied by this RN.
== END 2019-05-18 13:45 | disposition home or self-care (01) | DRG 291 ==
LOC: ER 13:00 → ICUW 16:59
PROVIDERS: Family Medicine; Internal Medicine; ADMIT Hospitalist
PROC: 5A09357 Assistance with Respiratory Ventilation, Less than 24 Consecutive Hours, Continuous Positive Airway Pressure (ICD-10-PCS; principal; 2019-05-16)
DX: I13.2 Hypertensive heart and chronic kidney disease with heart failure and with stage 5 chronic kidney disease, or end stage renal disease (principal); J96.01 Acute respiratory failure with hypoxia; I50.43 Acute on chronic combined systolic (congestive) and diastolic (congestive) heart failure; N17.9 Acute kidney failure, unspecified; I48.21 Permanent atrial fibrillation; N18.5 Chronic kidney disease, stage 5; I42.9 Cardiomyopathy, unspecified; Z99.2 Dependence on renal dialysis; I27.20 Pulmonary hypertension, unspecified; E11.22 Type 2 diabetes mellitus with diabetic chronic kidney disease; Z95.3 Presence of xenogenic heart valve; E03.9 Hypothyroidism, unspecified; Z87.891 Personal history of nicotine dependence; I44.7 Left bundle-branch block, unspecified; Z95.0 Presence of cardiac pacemaker; D63.1 Anemia in chronic kidney disease
CPT/HCPCS: 36415; 71046; 71260; 80053; 81001; 82728; 82947; 83540; 83550; 83735; 83880; 84100; 84484; 85025; 93005; 93010; 94660; 96374-59; 99285-25; J0881; J1644; J1940; J2997; Q9967

== ENCOUNTER → 2019-05-21 | Outpatient (CLI) | payer OTHER ==
[~2019-05-21] MED LIST changes: +FURO80 PO
== END | disposition home or self-care (01) ==
LOC: LAB EV 09:00 → LAB SHORT 09:00
DX: R30.9 Painful micturition, unspecified (principal)
CPT/HCPCS: 87086

== ENCOUNTER 2019-06-01 18:44 | Inpatient (IN) | payer OTHER ==
[~2019-06-01] VITALS: Ht 167.6 cm; Wt 93.5 kg
[2019-06-01 19:29] LABS: Source, Urine Catheter
[2019-06-01 19:39] LABS: Bilirubin, Urine Neg (Neg); Blood, Urine 1+ (Neg); Glucose Qualitative, Urine Neg (Neg); Ketones, Urine 1+ (Neg); Leukocyte Esterase, Urine 2+ (Neg); Nitrite, Urine Neg (Neg); Protein, Urine 3+ (Neg); Urobilinogen, Urine 1+ (Normal)
[2019-06-01 19:40] LABS: Appearance, Urine Hazy (Clear); Color, Urine Yellow (P-Yellow)
[2019-06-01 19:50] LABS: Bacteria Many /hpf; Red Blood Cells, Urine 0-2 /hpf (0-2); Squamous Epithelial Cells Mod /hpf (Few)
[2019-06-01 21:00] LABS: BASOPHILS ABSOLUTE AUTO 0.01 K/mm3 (0.00-0.23); BASOPHILS PERCENT AUTO 0 % (0-2); EOSINOPHILS PERCENT AUTO 0 % (0-6); Hematocrit 29.3 % (33.0-51.0); Hemoglobin 8.6 g/dL (11.5-16.0); IMMATURE GRAN ABSOLUTE AUTO 0.04 K/mm3 (0.00-0.10); IMMATURE GRAN PERCENT AUTO 1 % (0-1); LYMPHOCYTES ABSOLUTE AUTO 1.12 K/mm3 (0.84-5.20); LYMPHOCYTES PERCENT AUTO 14 % (21-46); MONOCYTES ABSOLUTE AUTO 0.74 K/mm3 (0.16-1.47); MONOCYTES PERCENT AUTO 9 % (4-13); Mean Corpuscular HGB 27.9 pg (26.0-34.0); Mean Corpuscular HGB Conc 29.4 g/dL (31.5-36.5); Mean Corpuscular Volume 95 fL (80-100); Mean Platelet Volume 10.9 fL (9.1-12.4); NEUTROPHILS ABSOLUTE AUTO 6.27 K/mm3 (1.96-9.15); NEUTROPHILS PERCENT AUTO 77 % (41-73); Platelet Count 169 K/mm3 (150-400); RDW Coefficient Variation 17.6 % (11.7-14.2); Red Blood Cell Count 3.08 M/mm3 (3.80-5.20); White Blood Cell Count 8.18 K/mm3 (4.00-11.30)
[2019-06-01 21:17] LABS: Albumin, Blood 3.1 g/dL (3.4-5.0); Bilirubin, Total 1.4 mg/dL (0.1-1.0); Calcium, Blood 8.7 mg/dL (8.5-10.1); Creatinine, Blood 3.01 mg/dL (0.40-1.00); Globulin, Blood 3.2 g/dL (2.2-4.0); Potassium, Blood 4.1 mmol/L (3.5-5.5); Total Protein, Blood 6.3 g/dL (6.4-8.2)
[2019-06-02 06:09] LABS: Bun/Creatinine Ratio 9.7 (12.0-20.0); Calcium, Blood 8.9 mg/dL (8.5-10.1); Creatinine, Blood 3.41 mg/dL (0.40-1.00); Potassium, Blood 4.5 mmol/L (3.5-5.5)
--- NOTE | 2019-06-02 06:32 | NUR ---
PHYSICIAN COMMUNICATION CONTACTED BONE GLUE MAKER PHYSICIAN, DR STINSON, AT 0600 TO INFORM HIM THAT THE PATIENT WAS EXPERIENCING SLURRED SPEECH, R SIDED FACIAL DROOP, SLUGGISH R PUPIL REACTION AND RIGHT SIDED WEAKNESS. DR STINSON ORDERED A STAT HEAD CT SCAN. WHEN ATTEMPTING TO ORDER THE SCAN THIS NURSE NOTED THAT THE PATIENT HAD ALREADY HAD A CT SCAN IN THE ER BUT NO RESULTS WERE AVAILABLE YET. CALLED IMAGING TO SEE IF THEY HAD ANY INFORMATION. IMAGING SAID THAT THERE WAS A PRELIMINARY REPORT BUT THE OFFICIAL REPORT CAN'T BE POSTED UNTIL THE SCANS HAVE BEEN READ BY A DOCTOR WHO WON'T BE IN UNTIL 0800.
--- NOTE | 2019-06-02 07:57 | NUR ---
SHIFT SUMMARY PATIENT EXPERIENCING SOME CONFUSION SINCE ADMIT. HAVING SOME SIGNS OF CVA NOTED IN A PREVIOUS NOTE, WAITING ON CT SCAN TO BE READ TO CONFIRM. PATIENT ON 2 LITERS O2 VIA NASAL CANULA. BED IN LOWEST POSITION WITH WHEELS LOCKED AND ALARM ON. CALL LIGHT WITHIN REACH. REPORT GIVEN TO ONCOMING RN.
[2019-06-02 13:01] LABS: Adenovirus Not Detected (NOT DETECT); Coronavirus 229E Not Detected (NOT DETECT); Coronavirus HKU1 Not Detected (NOT DETECT); Coronavirus NL63 Not Detected (NOT DETECT)
[2019-06-02 13:02] LABS: Bordetella pertussis Not Detected (NOT DETECT); Chlamydophila pneumoniae Not Detected (NOT DETECT); Coronavirus OC43 Not Detected (NOT DETECT); Human Metapneumovirus Not Detected (NOT DETECT); Human Rhinovirus/Enterovirus Not Detected (NOT DETECT); Influenza A/2009-H1 Not Detected (NOT DETECT); Influenza A/H1 Not Detected (NOT DETECT); Influenza A/H3 Not Detected (NOT DETECT); Influenza B Not Detected (NOT DETECT); Mycoplasma pneumoniae Not Detected (NOT DETECT); Parainfluenza Virus 1 Not Detected (NOT DETECT); Parainfluenza Virus 2 Not Detected (NOT DETECT); Parainfluenza Virus 3 Not Detected (NOT DETECT); Parainfluenza Virus 4 Not Detected (NOT DETECT); Respiratory Syncytial Virus Not Detected (NOT DETECT)
--- NOTE | 2019-06-02 18:44 | NUR ---
a+o, family here during day but now sitting in bed playing on ipad, family has stated that she gets confused at night/upon waking, assisted to bsc, call light in reach, bed in low position, nc at 2L, mediated as prescribed, will continue to monitor and treat until share bsr with pt and staff
[2019-06-03 05:39] LABS: BASOPHILS ABSOLUTE AUTO 0.05 K/mm3 (0.00-0.23); BASOPHILS PERCENT AUTO 1 % (0-2); EOSINOPHILS ABSOLUTE AUTO 0.05 K/mm3 (0.00-0.68); EOSINOPHILS PERCENT AUTO 1 % (0-6); Hemoglobin 8.6 g/dL (11.5-16.0); IMMATURE GRAN ABSOLUTE AUTO 0.03 K/mm3 (0.00-0.10); IMMATURE GRAN PERCENT AUTO 0 % (0-1); LYMPHOCYTES ABSOLUTE AUTO 0.88 K/mm3 (0.84-5.20); LYMPHOCYTES PERCENT AUTO 11 % (21-46); MONOCYTES ABSOLUTE AUTO 0.88 K/mm3 (0.16-1.47); MONOCYTES PERCENT AUTO 11 % (4-13); Mean Corpuscular HGB 27.9 pg (26.0-34.0); Mean Corpuscular HGB Conc 28.7 g/dL (31.5-36.5); Mean Corpuscular Volume 97 fL (80-100); NEUTROPHILS ABSOLUTE AUTO 6.47 K/mm3 (1.96-9.15); NEUTROPHILS PERCENT AUTO 77 % (41-73); Platelet Count 197 K/mm3 (150-400); RDW Coefficient Variation 17.6 % (11.7-14.2); Red Blood Cell Count 3.08 M/mm3 (3.80-5.20); White Blood Cell Count 8.36 K/mm3 (4.00-11.30)
[2019-06-03 06:01] LABS: Anion Gap 7 mmol/L (6-16); Blood Urea Nitrogen 50 mg/dL (8-24); Bun/Creatinine Ratio 11.7 (12.0-20.0); CO2, Blood 33 mmol/L (21-32); Calcium, Blood 9.1 mg/dL (8.5-10.1); Chloride, Blood 101 mmol/L (98-108); Creatinine, Blood 4.26 mg/dL (0.40-1.00); Glomerular Filtration Rate 11 (60-); Glucose, Blood 101 mg/dL (70-99); Magnesium, Blood 2.4 mg/dL (1.6-2.4); Phosphorus, Blood 6.2 mg/dL (2.5-4.9); Potassium, Blood 4.4 mmol/L (3.5-5.5); Sodium, Blood 141 mmol/L (136-145)
--- NOTE | 2019-06-03 06:45 | NUR ---
ULTRASOUND TECHNICIAN SUMMARY PT A/O X4, WAS ABLE TO ANSWER ALL QUESTIONS AT BEGINNING OF SHIFT. HOWEVER, SHE DOES GET CONFUSED AND IS INCONTIENT AT NIGHT. I DID NOT HAVE PT ON 06/01/19. YARN HAULER TOLD ME HER CONFUSION HAS INCREASED FROM PRIOR ULTRASOUND TECHNICIAN. PT HAS BEEN AGITATED TONIGHT WHENEVER STAFF CHECKS UP ON HER. FOR EXAMPLE SHE STATED "YOU HAVE TO CHECK MY SKIN, YOU HAVE TO MOVE ME AROUND, YOU HAVE TO PUT MY OXYGEN ON" IN A MOCKERY TONE. VSS, NO ACUTE CHANGES. CALL LIGHT WITHIN REACH.
--- NOTE | 2019-06-03 09:18 | NUR ---
a at baseline, knows facts but gives strange answers at time, report received from night crew, speech slured, weakness in all limbs but pulses and profusion good, ls dim in base clear top, perrl except one puiple slightly smaller than other, bed in low position, o2 at 1l via n c, iv hard to flush, will continue to monitor and treat as appropriate
--- NOTE | 2019-06-03 09:32 | NUR ---
PER DR ORDER DROPPED O2 TO 1 90% WHEN TRIED TURNING OFF DROPPED TO 87%, TURNED BACK UP TO ONE BACK TO 91 % WILL CONTINUE TO TRY TO WEAN
--- NOTE | 2019-06-03 11:47 | NUR ---
FAMILY IN REQUESTING , CALLED AND HE CAME TO ROOM, SHE WANTS PT/OT EVAL PRIOR TO PT DC TO [facility] MOBILITY, MINIMAL APPETITE, WILL PASS ON TO NOC SHIFT AND WRITE A NURSE NOTIFY
--- NOTE | 2019-06-03 12:45 | NUR ---
DOWN for dialysis, tolerated well, returned to room, friends waiting in mario, still no appetite
--- NOTE | 2019-06-03 18:52 | NUR ---
ALERT AT BASELINE, CALL LIGHT IN REACH, EAGER TO GO HOME, TOOK MEDICATIONS PRESCRIBED, BED IN LOW POSITION, DIALYSIS DONE TO DAY, SYMPTOMS OF CVA RECEDING AND RETURNING THROUGHOUT DAY, ABLE TO TALK THROUGH ANXIETY, SALINE LOCKED, NO ACUTE CHANGES NOTED DURING SHIFT
--- NOTE | 2019-06-04 04:05 | NUR ---
MOTOCROSS RACER SUMMARY PT AGITATED MOST OF THE NIGHT. HAS NOT SLEPT WELL. PT TRIED TO GET OUT OF BED A FEW TIMES TONIGHT AND WAS MOSTLY CONFUSED. SHE STARTED TO PULL OFF HER TELE TOO. HALDOL 2-3 MG IV ORDERED. 3 MG WAS GIVEN. PT HAS BEEN ASLEEP SINCE THIS WAS GIVEN. SHE DENIED HAVING PAIN, SOB, NAUSEA. CURRENTLY ON 1 L O2. INCONTIENT THROUGHOUT THE NIGHT. VSS. WILL CONTINUE TO MONITOR.
[2019-06-04 06:12] LABS: BASOPHILS ABSOLUTE AUTO 0.05 K/mm3 (0.00-0.23); BASOPHILS PERCENT AUTO 1 % (0-2); EOSINOPHILS ABSOLUTE AUTO 0.08 K/mm3 (0.00-0.68); EOSINOPHILS PERCENT AUTO 1 % (0-6); Hematocrit 30.6 % (33.0-51.0); IMMATURE GRAN ABSOLUTE AUTO 0.05 K/mm3 (0.00-0.10); IMMATURE GRAN PERCENT AUTO 1 % (0-1); LYMPHOCYTES ABSOLUTE AUTO 1.12 K/mm3 (0.84-5.20); LYMPHOCYTES PERCENT AUTO 14 % (21-46); MONOCYTES ABSOLUTE AUTO 0.93 K/mm3 (0.16-1.47); MONOCYTES PERCENT AUTO 12 % (4-13); Mean Corpuscular HGB 28.3 pg (26.0-34.0); Mean Corpuscular HGB Conc 29.4 g/dL (31.5-36.5); Mean Corpuscular Volume 96 fL (80-100); NEUTROPHILS ABSOLUTE AUTO 5.85 K/mm3 (1.96-9.15); NEUTROPHILS PERCENT AUTO 72 % (41-73); NRBC ABSOLUTE 0.02 K/mm3 (0.00-0.02); NRBC Auto 0.2 /100 WBC (0.0-0.2); Platelet Count 208 K/mm3 (150-400); RDW Coefficient Variation 17.4 % (11.7-14.2); RDW Standard Deviation 61.6 fL (35.1-46.3); Red Blood Cell Count 3.18 M/mm3 (3.80-5.20); White Blood Cell Count 8.08 K/mm3 (4.00-11.30)
[2019-06-04 06:27] LABS: International Normalized Ratio 1.38; Prothrombin Time Results 14.5 Sec (9.7-11.5)
[2019-06-04 06:35] LABS: Albumin, Blood 3.1 g/dL (3.4-5.0); Anion Gap 8 mmol/L (6-16); Blood Urea Nitrogen 46 mg/dL (8-24); CO2, Blood 33 mmol/L (21-32); Calcium, Blood 9.1 mg/dL (8.5-10.1); Chloride, Blood 101 mmol/L (98-108); Creatinine, Blood 3.82 mg/dL (0.40-1.00); Glomerular Filtration Rate 12 (60-); Glucose, Blood 85 mg/dL (70-99); Magnesium, Blood 2.3 mg/dL (1.6-2.4); Phosphorus, Blood 4.4 mg/dL (2.5-4.9); Potassium, Blood 3.9 mmol/L (3.5-5.5); Sodium, Blood 142 mmol/L (136-145)
[2019-06-04] MEDS ORDERED: ATOR40TA PO (17:17)
[2019-06-04] MEDS ORDERED: FURO80 PO (17:17)
[2019-06-04] MEDS ORDERED: LOSA25 PO (17:18)
[2019-06-04] MEDS ORDERED: HYDRA25 PO (17:19)
[2019-06-04] MEDS ORDERED: Coumadin2 MG PO (17:19)
[2019-06-04] MEDS ORDERED: ACET325 PO (17:20)
--- NOTE | 2019-06-04 17:53 | NUR ---
Discharge Summary A/Ox3, pleasant and cooperative with care. Patient discharging to home, reviewed discharge materials with patient and daughter at bedside. Also reviewed educational materials for CHF and changes in medications. [facility] [facility]. Escorted via w/c by SALES PROMOTION OFFICER and daughter. Personal belongings sent home.
== END 2019-06-04 17:47 | disposition home or self-care (01) | DRG 291 ==
LOC: ER 18:44 → MEDS 18:45
PROVIDERS: Internal Medicine Gastroenterology; Physician Assistant; ADMIT Internal Medicine
PROC: 5A1D70Z Performance of Urinary Filtration, Intermittent, Less than 6 Hours Per Day (ICD-10-PCS; principal; 2019-06-03)
DX: I13.2 Hypertensive heart and chronic kidney disease with heart failure and with stage 5 chronic kidney disease, or end stage renal disease (principal); N18.6 End stage renal disease; J96.01 Acute respiratory failure with hypoxia; I50.23 Acute on chronic systolic (congestive) heart failure; G45.9 Transient cerebral ischemic attack, unspecified; I48.21 Permanent atrial fibrillation; E11.22 Type 2 diabetes mellitus with diabetic chronic kidney disease; E87.70 Fluid overload, unspecified; M54.5 Low back pain; G89.29 Other chronic pain; E03.9 Hypothyroidism, unspecified; K21.9 Gastro-esophageal reflux disease without esophagitis; G25.81 Restless legs syndrome; F03.90 Unspecified dementia, unspecified severity, without behavioral disturbance, psychotic disturbance, mood disturbance, and anxiety; R09.89 Other specified symptoms and signs involving the circulatory and respiratory systems; D63.1 Anemia in chronic kidney disease; I44.7 Left bundle-branch block, unspecified; F32.9 Major depressive disorder, single episode, unspecified; F41.9 Anxiety disorder, unspecified; Z66 Do not resuscitate; Z95.810 Presence of automatic (implantable) cardiac defibrillator; Z95.3 Presence of xenogenic heart valve; Z99.2 Dependence on renal dialysis; Z88.8 Allergy status to other drugs, medicaments and biological substances; Z88.5 Allergy status to narcotic agent; Z79.899 Other long term (current) drug therapy
CPT/HCPCS: 0099U; 36415; 70450; 71046; 80048; 80053; 80069; 81001; 82947; 83735; 83880; 85025; 85610; 87086; 93005; 93010; 93880; 96365; 96372; 96375; 96376; 97116; 97162; 97166; 97535; 99285-25; A9270-GY; G0378; J0696; J0881; J1630; J1644; J1940; P9612

== ENCOUNTER → 2019-06-26 | Outpatient (CLI) | payer OTHER ==
[~2019-06-26] MED LIST changes: +ATOR40TA PO; +Coumadin2 MG PO; +LOSA25 PO
[2019-06-26 15:35] LABS: Appearance, Urine Cloudy (Clear); Color, Urine Amber (P-Yellow); Specific Gravity, Urine 1.015 (1.003-1.022)
[2019-06-26 15:36] LABS: Bilirubin, Urine 1+ (Neg); Blood, Urine Neg (Neg); Glucose Qualitative, Urine Neg (Normal); Ketones, Urine Neg (Neg); Leukocyte Esterase, Urine 2+ (Neg); Nitrite, Urine Neg (Neg); Protein, Urine 1+ (Neg); Urobilinogen, Urine NORM (Normal)
[2019-06-26 15:42] LABS: Bacteria Few /hpf; Red Blood Cells, Urine Not Seen /hpf (0-2); Renal Epithelial Few /hpf (0-Rare); Squamous Epithelial Cells Few /hpf (Few); Transitional Epithelial Cells Few /hpf (0-Rare)
== END | disposition home or self-care (01) ==
LOC: LAB EV 13:43 → LAB SHORT 13:43
PROVIDERS: Family Medicine
DX: R30.9 Painful micturition, unspecified (principal)
CPT/HCPCS: 81001

== ENCOUNTER → 2019-07-21 | Outpatient (CLI) | payer OTHER ==
[2019-07-21 16:17] LABS: Albumin/Globulin Ratio 0.9 (0.8-1.8); Bilirubin, Direct 0.2 mg/dL (0.0-0.3); Bilirubin, Indirect 0.2 mg/dL (0.1-0.7); Bilirubin, Total 0.4 mg/dL (0.1-1.0); Globulin, Blood 3.5 g/dL (2.2-4.0); Thyroid Stimulating Hormone 1.71 uIU/mL (0.360-4.800); Total Protein, Blood 6.5 g/dL (6.4-8.2)
== END | disposition home or self-care (01) ==
LOC: LAB SHORT 12:39 → OLS 12:39
PROVIDERS: Internal Medicine Cardiovascular Disease
DX: I13.2 Hypertensive heart and chronic kidney disease with heart failure and with stage 5 chronic kidney disease, or end stage renal disease (principal); N18.6 End stage renal disease; D63.1 Anemia in chronic kidney disease; E03.9 Hypothyroidism, unspecified
CPT/HCPCS: 80076; 84443

== ENCOUNTER → 2019-08-24 | Outpatient (CLI) | payer OTHER | END | disposition home or self-care (01) | LOC: LAB SHORT 16:45 → LAB EV 16:45 | DX: R30.9 Painful micturition, unspecified (principal) | CPT/HCPCS: 87086 ==

== ENCOUNTER → 2019-09-06 | Outpatient (CLI) | payer OTHER | END | disposition home or self-care (01) | LOC: LAB EV 08:00 → LAB SHORT 08:00 | DX: N39.0 Urinary tract infection, site not specified (principal) | CPT/HCPCS: 87086 ==

== ENCOUNTER 2020-03-27 09:10 | Day surgery (SDC) | payer OTHER ==
[~2020-03-27] VITALS: Ht 167.6 cm; Wt 131.0 kg
== END 2020-03-27 15:00 | disposition home or self-care (01) ==
LOC: MHTC 09:10
PROC: 0JH608Z Insertion of Defibrillator Generator into Chest Subcutaneous Tissue and Fascia, Open Approach (ICD-10-PCS; principal; 2020-03-27)
PROC: 0JPT0PZ Removal of Cardiac Rhythm Related Device from Trunk Subcutaneous Tissue and Fascia, Open Approach (ICD-10-PCS; principal; 2020-03-27)
DX: Z45.02 Encounter for adjustment and management of automatic implantable cardiac defibrillator (principal); I44.7 Left bundle-branch block, unspecified; I13.2 Hypertensive heart and chronic kidney disease with heart failure and with stage 5 chronic kidney disease, or end stage renal disease; E11.22 Type 2 diabetes mellitus with diabetic chronic kidney disease; N18.6 End stage renal disease; I50.22 Chronic systolic (congestive) heart failure; D63.1 Anemia in chronic kidney disease; G47.33 Obstructive sleep apnea (adult) (pediatric); J44.9 Chronic obstructive pulmonary disease, unspecified; E03.9 Hypothyroidism, unspecified; E78.5 Hyperlipidemia, unspecified; I48.0 Paroxysmal atrial fibrillation; E66.9 Obesity, unspecified; I42.0 Dilated cardiomyopathy; I42.8 Other cardiomyopathies; I27.20 Pulmonary hypertension, unspecified; Z68.34 Body mass index [BMI] 34.0-34.9, adult; Z79.51 Long term (current) use of inhaled steroids; Z79.01 Long term (current) use of anticoagulants; Z79.899 Other long term (current) drug therapy; Z88.5 Allergy status to narcotic agent; Z88.8 Allergy status to other drugs, medicaments and biological substances; Z99.2 Dependence on renal dialysis
CPT/HCPCS: 33264; 99152; 99153; C1781; C1882; J0690; J1644; J2250; J3010; J7040

== ENCOUNTER 2020-06-25 08:54 | Emergency (ER) | payer OTHER ==
[~2020-06-25] VITALS: Ht 167.6 cm; Wt 91.6 kg
[~2020-06-25 08:54] MED LIST changes: -METO100ER PO
[2020-06-25] MEDS ORDERED: Calcium Acetat667 MG PO (09:39)
[2020-06-25] MEDS ORDERED: OMEP20ER PO (09:41)
[2020-06-25] MEDS ORDERED: RENA-VITE PO (09:42)
[2020-06-25] MEDS ORDERED: TUMS500 MG PO (09:42)
[2020-06-25 10:55] LABS: Source, Urine Catheter
[2020-06-25 11:00] LABS: Appearance, Urine Clear (Clear); Bilirubin, Urine Neg (Neg); Blood, Urine Neg (Neg); Color, Urine Yellow (P-Yellow); Glucose Qualitative, Urine Neg (Neg); Ketones, Urine 1+ (Neg); Leukocyte Esterase, Urine 1+ (Neg); Nitrite, Urine Neg (Neg); Protein, Urine 2+ (Neg); Urobilinogen, Urine 2+ (Normal)
[2020-06-25 11:26] LABS: Red Blood Cells, Urine 0-2 /hpf (0-2); White Blood Cells, Urine 0-2 /hpf (0-5)
[2020-06-25 11:28] LABS: Bacteria Rare /hpf; Squamous Epithelial Cells Rare /hpf (Few)
== END 2020-06-25 15:45 | disposition home or self-care (01) ==
LOC: ER 08:54
PROVIDERS: Physician Assistant
DX: M17.0 Bilateral primary osteoarthritis of knee (principal); N39.0 Urinary tract infection, site not specified; Z88.5 Allergy status to narcotic agent; Z88.8 Allergy status to other drugs, medicaments and biological substances; Z79.01 Long term (current) use of anticoagulants; Z79.899 Other long term (current) drug therapy
CPT/HCPCS: 70450; 71045; 81001; 87086; 99285-25; P9612

== ENCOUNTER 2020-07-01 23:27 | Observation (INO) | payer OTHER ==
[~2020-07-01] VITALS: Ht 170.2 cm; Wt 111.1 kg
[~2020-07-01 23:27] MED LIST changes: +Calcium Acetat667 MG PO; +RENA-VITE PO; +TUMS500 MG PO
[2020-07-01 23:53] LABS: BASOPHILS ABSOLUTE AUTO 0.06 K/mm3 (0.00-0.23); BASOPHILS PERCENT AUTO 1 % (0-2); EOSINOPHILS ABSOLUTE AUTO 0.14 K/mm3 (0.00-0.68); EOSINOPHILS PERCENT AUTO 2 % (0-6); Hematocrit 37.7 % (33.0-51.0); IMMATURE GRAN ABSOLUTE AUTO 0.01 K/mm3 (0.00-0.10); IMMATURE GRAN PERCENT AUTO 0 % (0-1); LYMPHOCYTES ABSOLUTE AUTO 1.33 K/mm3 (0.84-5.20); LYMPHOCYTES PERCENT AUTO 20 % (21-46); MONOCYTES ABSOLUTE AUTO 0.89 K/mm3 (0.16-1.47); MONOCYTES PERCENT AUTO 13 % (4-13); Mean Corpuscular HGB 32.5 pg (26.0-34.0); Mean Corpuscular HGB Conc 31.8 g/dL (31.5-36.5); Mean Corpuscular Volume 102 fL (80-100); Mean Platelet Volume 11.6 fL (9.1-12.4); NEUTROPHILS ABSOLUTE AUTO 4.29 K/mm3 (1.96-9.15); NEUTROPHILS PERCENT AUTO 64 % (41-73); Platelet Count 119 K/mm3 (150-400); RDW Coefficient Variation 18.7 % (11.7-14.2); RDW Standard Deviation 69.3 fL (35.1-46.3); Red Blood Cell Count 3.69 M/mm3 (3.80-5.20); White Blood Cell Count 6.72 K/mm3 (4.00-11.30)
[2020-07-02 00:04] LABS: Albumin, Blood 3.2 g/dL (3.4-5.0); Albumin/Globulin Ratio 1.1 (0.8-1.8); Bilirubin, Total 1.5 mg/dL (0.1-1.0); Bun/Creatinine Ratio 10.4 (12.0-20.0); Calcium, Blood 9.3 mg/dL (8.5-10.1); Creatinine, Blood 4.12 mg/dL (0.40-1.00); Potassium, Blood 3.6 mmol/L (3.5-5.5); Total Protein, Blood 6.2 g/dL (6.4-8.2)
[2020-07-02 00:05] LABS: International Normalized Ratio 1.48; Prothrombin Time Results 15.5 Sec (9.7-11.5)
[2020-07-02 05:57] LABS: Albumin, Blood 2.9 g/dL (3.4-5.0); Albumin/Globulin Ratio 1.1 (0.8-1.8); BASOPHILS ABSOLUTE AUTO 0.05 K/mm3 (0.00-0.23); BASOPHILS PERCENT AUTO 1 % (0-2); Bilirubin, Total 1.4 mg/dL (0.1-1.0); Bun/Creatinine Ratio 10.4 (12.0-20.0); Calcium, Blood 8.8 mg/dL (8.5-10.1); Creatinine, Blood 4.22 mg/dL (0.40-1.00); EOSINOPHILS PERCENT AUTO 2 % (0-6); Globulin, Blood 2.7 g/dL (2.2-4.0); Hematocrit 34.5 % (33.0-51.0); Hemoglobin 11.1 g/dL (11.5-16.0); IMMATURE GRAN ABSOLUTE AUTO 0.02 K/mm3 (0.00-0.10); IMMATURE GRAN PERCENT AUTO 0 % (0-1); LYMPHOCYTES ABSOLUTE AUTO 0.98 K/mm3 (0.84-5.20); LYMPHOCYTES PERCENT AUTO 17 % (21-46); MONOCYTES ABSOLUTE AUTO 0.78 K/mm3 (0.16-1.47); MONOCYTES PERCENT AUTO 14 % (4-13); Mean Corpuscular HGB 32.6 pg (26.0-34.0); Mean Corpuscular HGB Conc 32.2 g/dL (31.5-36.5); Mean Corpuscular Volume 101 fL (80-100); NEUTROPHILS ABSOLUTE AUTO 3.77 K/mm3 (1.96-9.15); NEUTROPHILS PERCENT AUTO 66 % (41-73); Platelet Count 104 K/mm3 (150-400); Potassium, Blood 3.4 mmol/L (3.5-5.5); RDW Coefficient Variation 18.6 % (11.7-14.2); RDW Standard Deviation 69.3 fL (35.1-46.3); Red Blood Cell Count 3.41 M/mm3 (3.80-5.20); Total Protein, Blood 5.6 g/dL (6.4-8.2)
[2020-07-03 05:02] LABS: International Normalized Ratio 1.28; Prothrombin Time Results 13.5 Sec (9.7-11.5)
[2020-07-04 05:30] LABS: International Normalized Ratio 1.44; Prothrombin Time Results 15.1 Sec (9.7-11.5)
[2020-07-04 14:40] LABS: BASOPHILS ABSOLUTE AUTO 0.04 K/mm3 (0.00-0.23); BASOPHILS PERCENT AUTO 1 % (0-2); EOSINOPHILS ABSOLUTE AUTO 0.06 K/mm3 (0.00-0.68); EOSINOPHILS PERCENT AUTO 1 % (0-6); Hematocrit 32.5 % (33.0-51.0); Hemoglobin 10.7 g/dL (11.5-16.0); IMMATURE GRAN ABSOLUTE AUTO 0.01 K/mm3 (0.00-0.10); IMMATURE GRAN PERCENT AUTO 0 % (0-1); LYMPHOCYTES ABSOLUTE AUTO 0.89 K/mm3 (0.84-5.20); LYMPHOCYTES PERCENT AUTO 19 % (21-46); MONOCYTES ABSOLUTE AUTO 0.33 K/mm3 (0.16-1.47); MONOCYTES PERCENT AUTO 7 % (4-13); Mean Corpuscular HGB 32.7 pg (26.0-34.0); Mean Corpuscular HGB Conc 32.9 g/dL (31.5-36.5); Mean Corpuscular Volume 99 fL (80-100); Mean Platelet Volume 11.4 fL (9.1-12.4); NEUTROPHILS ABSOLUTE AUTO 3.29 K/mm3 (1.96-9.15); NEUTROPHILS PERCENT AUTO 71 % (41-73); Platelet Count 125 K/mm3 (150-400); RDW Coefficient Variation 17.9 % (11.7-14.2); RDW Standard Deviation 65.3 fL (35.1-46.3); Red Blood Cell Count 3.27 M/mm3 (3.80-5.20); White Blood Cell Count 4.62 K/mm3 (4.00-11.30)
[2020-07-04 14:55] LABS: Anion Gap 5 mmol/L (6-16); Blood Urea Nitrogen 36 mg/dL (8-24); CO2, Blood 31 mmol/L (21-32); Calcium, Blood 8.8 mg/dL (8.5-10.1); Chloride, Blood 99 mmol/L (98-108); Creatinine, Blood 3.28 mg/dL (0.40-1.00); Glomerular Filtration Rate 14 (60-); Glucose, Blood 111 mg/dL (70-99); Phosphorus, Blood 2.9 mg/dL (2.5-4.9); Sodium, Blood 135 mmol/L (136-145)
[2020-07-05 05:30] LABS: International Normalized Ratio 1.85; Prothrombin Time Results 19.1 Sec (9.7-11.5)
[2020-07-06 05:21] LABS: International Normalized Ratio 2.97; Prothrombin Time Results 29.9 Sec (9.7-11.5)
[2020-07-07 10:03] LABS: International Normalized Ratio 3.59; Prothrombin Time Results 36.1 Sec (9.7-11.5)
[2020-07-07 10:32] LABS: Hematocrit 36.1 % (33.0-51.0); Hemoglobin 11.5 g/dL (11.5-16.0)
[2020-07-07 10:39] LABS: Anion Gap 8 mmol/L (6-16); Blood Urea Nitrogen 62 mg/dL (8-24); Bun/Creatinine Ratio 12.8 (12.0-20.0); CO2, Blood 30 mmol/L (21-32); Calcium, Blood 9.4 mg/dL (8.5-10.1); Chloride, Blood 98 mmol/L (98-108); Creatinine, Blood 4.86 mg/dL (0.40-1.00); Glomerular Filtration Rate 9 (60-); Glucose, Blood 106 mg/dL (70-99); Phosphorus, Blood 4.2 mg/dL (2.5-4.9); Potassium, Blood 4.6 mmol/L (3.5-5.5); Sodium, Blood 136 mmol/L (136-145)
[2020-07-08 06:20] LABS: International Normalized Ratio 3.09; Prothrombin Time Results 31.3 Sec (9.7-11.5)
[2020-07-09 05:27] LABS: International Normalized Ratio 2.38; Prothrombin Time Results 24.5 Sec (9.7-11.5)
[2020-07-10 04:55] LABS: International Normalized Ratio 1.9; Prothrombin Time Results 19.8 Sec (9.7-11.5)
[2020-07-10 11:36] LABS: Influenza A, PCR NEGATIVE (NEGATIVE); Influenza B, PCR NEGATIVE (NEGATIVE); Resp Syncytial Virus, PCR NEGATIVE (NEGATIVE); SARS-Cov-2 (COVID-19) PCR, MMC NEGATIVE (NEGATIVE)
[2020-07-10] MEDS ORDERED: Rena-Vite Tabl0.8 MG PO (12:51)
[2020-07-10] MEDS ORDERED: TRAM50 PO (12:54)
== END 2020-07-10 16:06 ==
LOC: ER 23:27 → MEDS 23:28 → ER 07-02 02:48 → MEDS 07-02 13:50
PROVIDERS: Emergency Medicine; Family Medicine; Internal Medicine; Pharmacist; ADMIT Internal Medicine
DX: G92 Toxic encephalopathy (principal); N17.9 Acute kidney failure, unspecified; I13.0 Hypertensive heart and chronic kidney disease with heart failure and stage 1 through stage 4 chronic kidney disease, or unspecified chronic kidney disease; N18.6 End stage renal disease; E11.22 Type 2 diabetes mellitus with diabetic chronic kidney disease; I48.91 Unspecified atrial fibrillation; E03.9 Hypothyroidism, unspecified; I44.7 Left bundle-branch block, unspecified; J44.9 Chronic obstructive pulmonary disease, unspecified; Z91.81 History of falling; Z95.0 Presence of cardiac pacemaker; Z87.891 Personal history of nicotine dependence; Z88.8 Allergy status to other drugs, medicaments and biological substances; Z88.5 Allergy status to narcotic agent; Z79.899 Other long term (current) drug therapy; G31.84 Mild cognitive impairment of uncertain or unknown etiology; E78.5 Hyperlipidemia, unspecified; Z20.822 Contact with and (suspected) exposure to COVID-19
CPT/HCPCS: 0241U; 36415; 70450; 71045; 72125; 80053; 80069; 85014; 85018; 85025; 85610; 93005; 93010; 96360; 97110; 97112-CQ; 97116; 97116-CQ; 97162; 97166; 97168; 97530; 97530-CO; 97535; 97535-CO; 99285-25; A9270; G0257; G0378; J7030; P9612

== ENCOUNTER → 2020-08-30 | Outpatient (CLI) | payer OTHER ==
[~2020-08-30] MED LIST changes: +FAMO20 PO; +Keflex500 MG PO; +Magnesium250 MG PO; +PENVK500 PO; +Rena-Vite Tabl0.8 MG PO; +TIZA4 PO; +TRAM50 PO
[2020-09-01 14:05] LABS: C DIFFICILE DNA NEGATIVE (Negative)
== END | disposition home or self-care (01) ==
LOC: LAB EV 09:27 → LAB SHORT 09-01 09:27 → LAB EV 09-01 09:29
PROVIDERS: Family Medicine
DX: E11.22 Type 2 diabetes mellitus with diabetic chronic kidney disease (principal); I13.2 Hypertensive heart and chronic kidney disease with heart failure and with stage 5 chronic kidney disease, or end stage renal disease; I50.22 Chronic systolic (congestive) heart failure; N18.9 Chronic kidney disease, unspecified; A04.72 Enterocolitis due to Clostridium difficile, not specified as recurrent
CPT/HCPCS: 87493

== ENCOUNTER 2020-09-16 14:40 | Emergency (ER) | payer OTHER ==
[~2020-09-16] VITALS: Ht 172.7 cm; Wt 90.7 kg
[~2020-09-16 14:40] MED LIST changes: -FAMO20 PO; -Keflex500 MG PO; -Magnesium250 MG PO; -PENVK500 PO; -TIZA4 PO
[2020-09-16 15:04] LABS: BASOPHILS ABSOLUTE AUTO 0.03 K/mm3 (0.00-0.23); BASOPHILS PERCENT AUTO 1 % (0-2); EOSINOPHILS ABSOLUTE AUTO 0.04 K/mm3 (0.00-0.68); EOSINOPHILS PERCENT AUTO 1 % (0-6); Hematocrit 36.3 % (33.0-51.0); Hemoglobin 11.5 g/dL (11.5-16.0); IMMATURE GRAN ABSOLUTE AUTO 0.01 K/mm3 (0.00-0.10); IMMATURE GRAN PERCENT AUTO 0 % (0-1); LYMPHOCYTES ABSOLUTE AUTO 0.97 K/mm3 (0.84-5.20); LYMPHOCYTES PERCENT AUTO 22 % (21-46); MONOCYTES ABSOLUTE AUTO 0.66 K/mm3 (0.16-1.47); MONOCYTES PERCENT AUTO 15 % (4-13); Mean Corpuscular HGB 31.8 pg (26.0-34.0); Mean Corpuscular HGB Conc 31.7 g/dL (31.5-36.5); Mean Corpuscular Volume 100 fL (80-100); Mean Platelet Volume 11.4 fL (9.1-12.4); NEUTROPHILS ABSOLUTE AUTO 2.62 K/mm3 (1.96-9.15); NEUTROPHILS PERCENT AUTO 61 % (41-73); Platelet Count 120 K/mm3 (150-400); RDW Coefficient Variation 18.8 % (11.7-14.2); RDW Standard Deviation 69.9 fL (35.1-46.3); Red Blood Cell Count 3.62 M/mm3 (3.80-5.20); White Blood Cell Count 4.33 K/mm3 (4.00-11.30)
[2020-09-16 15:22] LABS: Prothrombin Time Results 71.8 Sec (9.7-11.5)
[2020-09-16 15:23] LABS: Albumin, Blood 3.1 g/dL (3.4-5.0); Bilirubin, Total 1.5 mg/dL (0.1-1.0); Bun/Creatinine Ratio 4.9 (12.0-20.0); Calcium, Blood 7.5 mg/dL (8.5-10.1); Creatinine, Blood 4.06 mg/dL (0.40-1.00); Potassium, Blood 3.8 mmol/L (3.5-5.5); Total Protein, Blood 6.1 g/dL (6.4-8.2); Troponin I 0.018 ng/mL (0.000-0.040)
[2020-09-16 15:30] LABS: International Normalized Ratio 7.45
[2020-09-16 17:52] LABS: Source, Urine Catheter
[2020-09-16 17:56] LABS: Blood, Urine 1+ (Neg); Color, Urine Amber (P-Yellow); Glucose Qualitative, Urine Neg (Neg); Ketones, Urine 1+ (Neg); Leukocyte Esterase, Urine 1+ (Neg); Nitrite, Urine Neg (Neg); Protein, Urine 3+ (Neg); Urobilinogen, Urine 1+ (Normal)
[2020-09-16 18:05] LABS: Bilirubin, Urine 2+ (Neg)
[2020-09-16] MEDS ORDERED: FURO80 PO (18:05)
[2020-09-16] MEDS ORDERED: PRAM.5 PO (18:05)
[2020-09-16 18:06] LABS: Appearance, Urine Hazy (Clear)
[2020-09-16 18:07] LABS: Amorphous Light (0-Heavy); Bacteria Mod /hpf; Hyaline Casts Rare /lpf (0-2); Red Blood Cells, Urine 0-2 /hpf (0-2); Squamous Epithelial Cells Few /hpf (Few)
[2020-09-16] MEDS ORDERED: Calcium Acetat667 MG PO (18:07)
[2020-09-16] MEDS ORDERED: Coumadin2 MG PO (18:16)
== END 2020-09-16 21:50 | disposition home or self-care (01) ==
LOC: ER 14:40
PROVIDERS: Physician Assistant
DX: R53.1 Weakness (principal); Z79.01 Long term (current) use of anticoagulants; Z88.5 Allergy status to narcotic agent; Z79.899 Other long term (current) drug therapy
CPT/HCPCS: 36415; 51701; 70450; 71046; 72125; 73502; 80053; 81001; 82947; 84484; 85025; 85610; 87086; 93005; 93010; 99285-25

== ENCOUNTER 2020-09-21 07:00 | Emergency (ER) | payer OTHER ==
[~2020-09-21] VITALS: Ht 167.6 cm; Wt 106.6 kg
[2020-09-21] MEDS ORDERED: PENVK500 PO (07:30)
== END 2020-09-21 10:04 | disposition home or self-care (01) ==
LOC: ER 07:00
DX: N39.0 Urinary tract infection, site not specified (principal); R52 Pain, unspecified; E11.9 Type 2 diabetes mellitus without complications; I10 Essential (primary) hypertension; Z88.8 Allergy status to other drugs, medicaments and biological substances; Z88.5 Allergy status to narcotic agent; Z79.899 Other long term (current) drug therapy; Z79.01 Long term (current) use of anticoagulants; Z87.891 Personal history of nicotine dependence; W01.0XXA Fall on same level from slipping, tripping and stumbling without subsequent striking against object, initial encounter
CPT/HCPCS: 99283; A9270

== ENCOUNTER 2020-10-17 23:12 | Emergency (ER) | payer OTHER ==
[~2020-10-17] VITALS: Ht 170.2 cm; Wt 81.7 kg
[~2020-10-17 23:12] MED LIST changes: +PENVK500 PO
[2020-10-18] MEDS ORDERED: OMEP20ER PO (00:10)
[2020-10-18] MEDS ORDERED: FERSU300 PO (00:12)
[2020-10-18] MEDS ORDERED: Magnesium250 MG PO (00:13)
[2020-10-18] MEDS ORDERED: TIZA4 PO (00:13)
[2020-10-18] MEDS ORDERED: FAMO20 PO (00:14)
== END 2020-10-18 02:20 | disposition home or self-care (01) ==
LOC: ER 23:12
DX: S09.90XA Unspecified injury of head, initial encounter (principal); W07.XXXA Fall from chair, initial encounter
CPT/HCPCS: 70450; 99284-25

== ENCOUNTER 2020-10-19 22:33 | Emergency (ER) | payer OTHER ==
[~2020-10-19] VITALS: Ht 167.6 cm; Wt 102.1 kg
[~2020-10-19 22:33] MED LIST changes: +FAMO20 PO; +Magnesium250 MG PO; +TIZA4 PO
[2020-10-20 00:31] LABS: BASOPHILS ABSOLUTE AUTO 0.04 K/mm3 (0.00-0.23); BASOPHILS PERCENT AUTO 1 % (0-2); EOSINOPHILS ABSOLUTE AUTO 0.03 K/mm3 (0.00-0.68); EOSINOPHILS PERCENT AUTO 1 % (0-6); Hematocrit 29.5 % (33.0-51.0); Hemoglobin 9.7 g/dL (11.5-16.0); IMMATURE GRAN ABSOLUTE AUTO 0.02 K/mm3 (0.00-0.10); IMMATURE GRAN PERCENT AUTO 0 % (0-1); LYMPHOCYTES ABSOLUTE AUTO 1.01 K/mm3 (0.84-5.20); LYMPHOCYTES PERCENT AUTO 18 % (21-46); MONOCYTES ABSOLUTE AUTO 1.01 K/mm3 (0.16-1.47); MONOCYTES PERCENT AUTO 18 % (4-13); Mean Corpuscular HGB 31.6 pg (26.0-34.0); Mean Corpuscular HGB Conc 32.9 g/dL (31.5-36.5); Mean Corpuscular Volume 96 fL (80-100); Mean Platelet Volume 11.3 fL (9.1-12.4); NEUTROPHILS ABSOLUTE AUTO 3.44 K/mm3 (1.96-9.15); NEUTROPHILS PERCENT AUTO 62 % (41-73); Platelet Count 138 K/mm3 (150-400); RDW Coefficient Variation 18.2 % (11.7-14.2); RDW Standard Deviation 62.8 fL (35.1-46.3); Red Blood Cell Count 3.07 M/mm3 (3.80-5.20); White Blood Cell Count 5.55 K/mm3 (4.00-11.30)
[2020-10-20 00:47] LABS: Albumin, Blood 2.9 g/dL (3.4-5.0); Albumin/Globulin Ratio 0.9 (0.8-1.8); Bilirubin, Total 1.5 mg/dL (0.1-1.0); Bun/Creatinine Ratio 9.3 (12.0-20.0); Calcium, Blood 8.8 mg/dL (8.5-10.1); Creatinine, Blood 5.71 mg/dL (0.40-1.00); Globulin, Blood 3.1 g/dL (2.2-4.0); Potassium, Blood 4.1 mmol/L (3.5-5.5)
[2020-10-20 00:50] LABS: International Normalized Ratio 1.48; Prothrombin Time Results 15.6 Sec (9.7-11.5)
[2020-10-20 01:04] LABS: Source, Urine Catheter
[2020-10-20 01:07] LABS: Blood, Urine 5+ (Neg); Glucose Qualitative, Urine Neg (Neg); Ketones, Urine 1+ (Neg); Leukocyte Esterase, Urine 3+ (Neg); Nitrite, Urine Neg (Neg); Protein, Urine 3+ (Neg); Specific Gravity, Urine 1.015 (1.003-1.022); Urobilinogen, Urine 1+ (Normal)
[2020-10-20 01:17] LABS: Appearance, Urine Cloudy (Clear); Bilirubin, Urine 1+ (Neg); Color, Urine Yellow (P-Yellow)
[2020-10-20 01:18] LABS: Bacteria Mod /hpf; Squamous Epithelial Cells Not Seen /hpf (Few); White Blood Cells, Urine TNTC /hpf (0-5)
[2020-10-20] MEDS ORDERED: Keflex500 MG PO (02:22)
== END 2020-10-20 03:45 | disposition home or self-care (01) ==
LOC: ER 22:33
PROVIDERS: Student in an Organized Health Care Education/Training Program
DX: N39.0 Urinary tract infection, site not specified (principal); I10 Essential (primary) hypertension; E03.9 Hypothyroidism, unspecified; E11.9 Type 2 diabetes mellitus without complications; Z91.81 History of falling; Z88.8 Allergy status to other drugs, medicaments and biological substances; Z88.5 Allergy status to narcotic agent; Z79.899 Other long term (current) drug therapy; Z79.01 Long term (current) use of anticoagulants; Z87.891 Personal history of nicotine dependence
CPT/HCPCS: 70450; 80053; 81001; 82550; 85025; 85610; 87086; 99284-25; A9270

== ENCOUNTER 2020-10-26 11:48 | Emergency (ER) | payer OTHER ==
[~2020-10-26] VITALS: Ht 167.6 cm; Wt 95.2 kg
[~2020-10-26 11:48] MED LIST changes: +Keflex500 MG PO
[2020-10-26] MEDS ORDERED: METO50ER PO (12:59)
[2020-10-26] MEDS ORDERED: WARF1 PO (13:00)
--- NOTE | 2020-10-26 18:12 | NUR ---
pt brought in by ems for altered mental status. pt stopped dialysis and plan was hospice intake tomorrow. pt family wants dnr and comfort care only. Extensive planning with [facility], doctor arik and dr owens to avoid an admission. waas able to control pt aggitation with haldol. spoke with nursing at [facility] and if pt on comfort only with medications for symtom they would take her back. Dr elise graciously agreed to have hospice pronounce pt if she before hospice intake. Pt is on on [employer] service. Dr owens coupled with the er practitioner to get orders and medications for héctor marie. Pt has manye medication allergies and sensitivities. Review of pt symptoms to narcotics with her daughter most of them were increased aggiation. pt responded well to the haldol. daughter wanted to try the roxinol and make sure her mother did not have air hunger. No signs or symptoms at this time of air hunger. atropine ordered for potential secretions. new polst completed with daughter pt dnr comfort only. héctor marie updated on pt response to haldol. Suggested that she may be well medicated for the evening and reviewed with the med aid judicous use of medications. Will follow up with family on pt needs.
== END 2020-10-26 16:10 | disposition home or self-care (01) ==
LOC: ER 11:48
DX: N19 Unspecified kidney failure (principal); E11.9 Type 2 diabetes mellitus without complications; I11.0 Hypertensive heart disease with heart failure; I50.9 Heart failure, unspecified; Z51.5 Encounter for palliative care; Z88.8 Allergy status to other drugs, medicaments and biological substances; Z88.5 Allergy status to narcotic agent; Z79.899 Other long term (current) drug therapy; Z87.891 Personal history of nicotine dependence
CPT/HCPCS: 96372; 99284; J1630